=== PATIENT | male | born 1930 | race Caucasian/White ===

== ENCOUNTER 2016-08-23 12:56 | Observation (INO) | payer MEDICARE ==
[2016-08-23] MEDS ORDERED: Aspirin Low Dose CHEW TAB* 81 MG PO ONE (13:38)
--- NOTE | 2016-08-23 13:57 | RAD ---
Indication: Chest pain, CHF and pneumonia. Single frontal view of the chest performed at 1345 hours was reviewed. Comparison is made with previous exam dated November 13, 2014. Cardiomegaly is noted. Chronic pleural changes are noted with chronic interstitial disease. Cannot exclude bibasilar infiltrates. IMPRESSION: THERE MAY BE SOME CHRONIC INTERSTITIAL DISEASE ALTHOUGH BIBASILAR INFILTRATES ARE NOT EXCLUDED. CARDIOMEGALY IS NOTED.
[2016-08-23 14:51] LABS: Hematocrit 49 % (42-52); Hemoglobin 16.2 g/dl (14.0-18.0); Mean Corpuscular HGB Conc 33 g/dl (31-36); Mean Corpuscular Hemoglobin 29 pg (27-31); Mean Corpuscular Volume 88 fL (80-94); Mean Platelet Volume 8 um3 (7.4-10.4); Red Blood Count 5.58 10^6/ul (4.0-5.4); Red Cell Distribution Width 14 % (10.5-15); White Blood Count 14.7 10^3/ul (3.5-10.8)
[2016-08-23 15:08] LABS: Troponin I 0.01 ng/mL (<0.04)
[2016-08-23 15:16] LABS: Albumin 4.2 g/dL (3.2-5.2); BUN/Creatinine Ratio 25.6 (8-20); Calcium 9.9 mg/dL (8.6-10.3); EGFR African American 103.1 (>60); EGFR Non-African American 80.2 (>60); Globulin 3.4 g/dL (2-4); Total Bilirubin 0.7 mg/dL (0.2-1.0); Total Protein 7.6 g/dL (6.4-8.9)
[2016-08-23] MEDS ORDERED: Acetaminophen TAB* 325 MG PO PRN (15:59)
[2016-08-23] MEDS ORDERED: NS 0.9% 1000 ML* 1,000 ML IV SCH (16:00)
[2016-08-23] MEDS ORDERED: Iohexol 350* (CONTRAST) 500 ML MDV IV ONE (16:39)
[2016-08-23 16:40] LABS: C Reactive Protein 6.66 mg/L (< 5.00)
--- NOTE | 2016-08-23 17:13 | ED ---
Peter Travis Adam, scribed for Kevin Wilson MD on 08/23/16 at 1330 . Shortness of Breath - HPI Summary HPI Summary: Pt is an 85 year old male presenting with SOB, back pain, and EKG changes. He states that starting yesterday he developed pain across his back at the level of his shoulder blades. He states that the muscles are sore and it feels like he "just got done with football practice." The pain is worse with movement. The pain is mostly resolved right now as the pt lies in bed. He also c/o intermittent SOB with minimal exertion and standing up which has been going on for longer than the back pain. He went to his PCP at [place] this morning and was sent here because of changes in his EKG. PMHx of HTN and HLD. Negative hx of VA and DM. Pt smokes 1 cigar per day. He gave up alcohol 5 years ago. - History of Current Complaint Chief Complaint: EDShortnessOfBreath Time Seen by Provider: 08/23/16 13:18 Hx Obtained From: Patient Onset/Duration: Gradual Onset, Lasting Days, Still Present Timing: Constant Current Severity: Moderate Dyspnea At: Exertion - Minimal Aggrevating Factors: Movement Alleviating Factors: Spontaneous Resolution - After resting still Associated Signs & Symptoms: Negative - Allergy/Home Medications Allergies/Adverse Reactions: Allergies Allergy/AdvReac Type Severity Reaction Status Date / Time Hydrochlorothiazide Allergy Unknown Verified 08/23/16 13:01 Reaction Details Penicillins Allergy See Comment Verified 08/23/16 13:01 Home Medications: Home Medications Albuterol/Ipratropium RESP(NF) [Combivent Respimat(NF)] 1 puff INH BID PRN 08/23 [History Confirmed 08/23/16] Aspirin EC Low Dose* [Ecotrin EC Low Dose 81 MG*] 81 mg PO DAILY 08/23/16 [ History Confirmed 08/23/16] Naproxen Sodium [Naproxen Sodium 220 mg] 220 mg PO BID PRN 08/23/16 [History Confirmed 08/23/16] Sertraline* [Zoloft*] 50 mg PO DAILY 08/23/16 [History Confirmed 08/23/16] PMH/Surg Hx/FS Hx/Imm Hx Endocrine/Hematology History: Denies: Hx Diabetes Cardiovascular History: Reports: Hx Hypercholesterolemia, Hx Hypertension - CONTROLLED W/MEDS Denies: Hx Myocardial Infarction, Hx Pacemaker/ICD Respiratory History: Reports: Other Respiratory Problems/Disorders - PULMONARY FIBROSIS GI History: Reports: Hx Gastroesophageal Reflux Disease, Hx Hiatal Hernia Musculoskeletal History: Reports: Hx Arthritis, Hx Back Problems - lower back, Hx Bursitis - shoulders, Hx Gout Sensory History: Reports: Hx Cataracts - surgery to both eyes, Hx Contacts or Glasses - reading only, Hx Vision Problem Denies: Hx Hearing Aid Opthamlomology History: Reports: Hx Cataracts - surgery to both eyes, Hx Contacts or Glasses - reading only, Hx Vision Problem Neurological History: Reports: Hx Headaches, Hx Transient Ischemic Attacks (TIA ) - admission Dx, Other Neuro Impairments/Disorders - spinal compression fracture Psychiatric History: Denies: Hx Panic Disorder - Cancer History Cancer Type, Location and Year: pt states he had a lump removed from back of head at [place]. Hx Chemotherapy: No Hx Radiation Therapy: No - Surgical History Surgery Procedure, Year, and Place: hiatal hernia -before 1999, cataracts to both eyes, Hx Anesthesia Reactions: No Infectious Disease History: No Infectious Disease History: Denies: Traveled Outside the [place] in Last 30 Days - Family History Known Family History: Positive: Other - CVA (mother at age 84 or 85) - Social History Occupation: Retired Lives: With Family - Alcohol Use: Occasionally Hx Substance Use: No Substance Use Type: Reports: None Hx Tobacco Use: Yes Smoking Status (MU): Current Every Day Smoker Type: Cigars Amount Used/How Often: 1 cigar per day Length of Time of Smoking/Using Tobacco: about 70 years Have You Smoked in the Last Year: Yes Review of Systems Negative: Fever Positive: Shortness Of Breath Positive: Myalgia - Upper back All Other Systems Reviewed And Are Negative: Yes Physical Exam - Summary Physical Exam Summary: The patient is well-nourished in no acute distress and in no acute pain. The skin is warm and dry and skin color reflects adequate perfusion. HEENT: The head is normocephalic and atraumatic. The pupils are equal and reactive. The conjunctivae are clear and without drainage. Nares are patent and without drainage. Mouth reveals moist mucous membranes and the throat is without erythema and exudate. The external ears are intact. Neck is supple with full range of motion and non-tender. There are no carotid bruits. There is no neck vein distension. Respiratory: Chest is non-tender. Lungs are clear to auscultation and breath sounds are symmetrical and equal. No wheezes, rhonchi, rales. Cardiovascular: Heart is regular rate and rhythm. There is no murmur or rub auscultated. There is no peripheral edema and pulses are symmetrical and equal. Abdomen: The abdomen is soft and non-tender. There are normal bowel sounds heard in all four quadrants and there is no organomegaly palpated. Musculoskeletal: There is no reproducible back pain noted. No reproducible chest pain. No reproducible pain over shoulder blades. Extremities are non- tender with full range of motion. Motor strength is equal in extremities. There is good capillary refill. There is no peripheral edema or calf tenderness elicited. Neurological: Patient is alert and oriented to person, place and time. The patient has symmetrical motor strength in all four extremities. Cranial nerves are grossly intact. Deep tendon reflexes are symmetrical and equal in all four extremities. Psychiatric: The patient has an appropriate affect and does not exhibit any anxiety or depression. Triage Information Reviewed: Yes Vital Signs On Initial Exam: Initial Vitals Temp Pulse Resp BP Pulse Ox 97.1 F 42 16 144/67 96 08/23/16 13:01 08/23/16 13:01 08/23/16 13:01 08/23/16 13:01 08/23/16 13:01 Vital Signs Reviewed: Yes Diagnostics - Vital Signs Vital Signs Temp Pulse Resp BP Pulse Ox 08/23/16 13:01 97.1 F 42 16 144/67 96 - Laboratory Lab Results: Lab Results 08/23/16 08/23/16 08/23/16 Range/Units 14:40 14:40 14:40 WBC 14.7 H (3.5-10.8) 10^3/ul RBC 5.58 H (4.0-5.4) 10^6/ul Hgb 16.2 (14.0-18.0) g/dl Hct 49 (42-52) % MCV 88 (80-94) fL MCH 29 (27-31) pg MCHC 33 (31-36) g/dl RDW 14 (10.5-15) % Plt Count 311 (150-450) 10^3/ul MPV 8 (7.4-10.4) um3 Neut % (Auto) 69.6 (38-83) % Lymph % (Auto) 17.0 L (25-47) % [place] % (Auto) 8.8 (1-9) % Eos % (Auto) 3.4 (0-6) % Baso % (Auto) 1.2 (0-2) % Absolute Neuts (auto) 10.3 H (1.5-7.7) 10^3/ul Absolute Lymphs (auto) 2.5 (1.0-4.8) 10^3/ul Absolute Monos (auto) 1.3 H (0-0.8) 10^3/ul Absolute Eos (auto) 0.5 (0-0.6) 10^3/ul Absolute Basos (auto) 0.2 (0-0.2) 10^3/ul Absolute Nucleated RBC 0.01 10^3/ul Nucleated RBC % 0 Sodium 136 (133-145) mmol/L Potassium 4.0 (3.5-5.0) mmol/L Chloride 101 (101-111) mmol/L Carbon Dioxide 28 (22-32) mmol/L Anion Gap 7 (2-11) mmol/L BUN 23 (6-24) mg/dL Creatinine 0.90 (0.67-1.17) mg/dL Est GFR ( Amer) 103.1 (>60) Est GFR (Non-Af Amer) 80.2 (>60) BUN/Creatinine Ratio 25.6 H (8-20) Glucose 93 (70-100) mg/dL Lactic Acid 1.5 (0.5-2.0) mmol/L Calcium 9.9 (8.6-10.3) mg/dL Total Bilirubin 0.70 (0.2-1.0) mg/dL AST 16 (13-39) U/L ALT 10 (7-52) U/L Alkaline Phosphatase 110 H (34-104) U/L Troponin I 0.01 (<0.04) ng/mL C-Reactive Protein 6.66 H (< 5.00) mg/L B-Natriuretic Peptide ( - 100) pg/mL Total Protein 7.6 (6.4-8.9) g/dL Albumin 4.2 (3.2-5.2) g/dL Globulin 3.4 (2-4) g/dL Albumin/Globulin Ratio 1.2 (1-3) // Range/Units 14:40 WBC (3.5-10.8) 10^3/ul RBC (4.0-5.4) 10^6/ul Hgb (14.0-18.0) g/dl Hct (42-52) % MCV (80-94) fL MCH (27-31) pg MCHC (31-36) g/dl RDW (10.5-15) % Plt Count (150-450) 10^3/ul MPV (7.4-10.4) um3 Neut % (Auto) (38-83) % Lymph % (Auto) (25-47) % [place] % (Auto) (1-9) % Eos % (Auto) (0-6) % Baso % (Auto) (0-2) % Absolute Neuts (auto) (1.5-7.7) 10^3/ul Absolute Lymphs (auto) (1.0-4.8) 10^3/ul Absolute Monos (auto) (0-0.8) 10^3/ul Absolute Eos (auto) (0-0.6) 10^3/ul Absolute Basos (auto) (0-0.2) 10^3/ul Absolute Nucleated RBC 10^3/ul Nucleated RBC % Sodium (133-145) mmol/L Potassium (3.5-5.0) mmol/L Chloride (101-111) mmol/L Carbon Dioxide (22-32) mmol/L Anion Gap (2-11) mmol/L BUN (6-24) mg/dL Creatinine (0.67-1.17) mg/dL Est GFR ( Amer) (>60) Est GFR (Non-Af Amer) (>60) BUN/Creatinine Ratio (8-20) Glucose (70-100) mg/dL Lactic Acid (0.5-2.0) mmol/L Calcium (8.6-10.3) mg/dL Total Bilirubin (0.2-1.0) mg/dL AST (13-39) U/L ALT (7-52) U/L Alkaline Phosphatase (34-104) U/L Troponin I (<0.04) ng/mL C-Reactive Protein (< 5.00) mg/L B-Natriuretic Peptide 110 H ( - 100) pg/mL Total Protein (6.4-8.9) g/dL Albumin (3.2-5.2) g/dL Globulin (2-4) g/dL Albumin/Globulin Ratio (1-3) Result Diagrams: 08/23/16 14:40 08/23/16 14:40 Lab Statement: Any lab studies that have been ordered have been reviewed, and results considered in the medical decision making process. - Radiology CXR Radiology Interpretation Completed By: Radiologist - IMPRESSION: THERE MAY BE SOME CHRONIC INTERSTITIAL DISEASE ALTHOUGH BIBASILAR INFILTRATES ARE NOT EXCLUDED. CARDIOMEGALY IS NOTED. - EKG 13:11 Cardiac Rate: Bradycardia - 58 BPM EKG Interpretation: T wave inversions in V1 and V2. Poor R wave progression. EKG Comparison: Other - New TWI in V2. TWI more pronounced in V1. (Compared with EKG from 11/12/14) - Additional Comments Diagnostic Additional Comments: Troponin I - 0.01 Course/Dx - Diagnoses Differential Diagnosis/HQI/PQRI: Positive: VA, Pneumonia Provider Diagnoses: Back tightness, EKG changes - Physician Notifications Discussed Care of Patient With: Dr. Mock (hospitalist) at 15:45. He accepts admission of patient. Discharge - Discharge Plan Condition: Stable Disposition: ADMITTED TO [facility] The documentation as recorded by the Peter kim Adam accurately reflects the service I personally performed and the decisions made by , Kevin iWlson MD.
--- NOTE | 2016-08-23 17:29 | RAD ---
INDICATION: Pain in the upper back, shortness of breath, weakness. COMPARISON: August 23, 2016 TECHNIQUE: Multidetector CT images were obtained from the lung apices to the upper abdomen with 69 mL Omnipaque 350 IV contrast. Pulmonary angiogram protocol. Multiplanar reformation including with maximum intensity projection. REPORT: Bilateral interstitial fibrosis most marked at the lower lung zones with extensive honeycombing and bronchiectasis. Subpleural bulla at the posterior lateral RIGHT midlung zone. No focal pulmonary alveolar consolidation or suspicious focal pulmonary lesion evident. Negative for pleural effusions or pneumothorax. Cardiomegaly and prominent central pulmonary arteries with peripheral attenuation consistent with pulmonary arterial hypertension. No filling defects are identified from the main to the subsegmental pulmonary arteries to indicate presence of a pulmonary embolism. Normal diameter thoracic aorta with mild atherosclerotic plaque. While early phase of contrast enhancement limits assessment there is no gross evidence for dissection of the thoracic aorta. Negative for pericardial effusion. Mildly enlarged 1.2 cm short axis RIGHT paratracheal lymph node. Mildly enlarged 1.1 cm short axis lymph node insinuating between the LEFT main pulmonary artery and the descending thoracic aorta. Small sliding type hiatal hernia. Mild anterior column compression deformity involving the superior endplate of the T6 vertebral body appears chronic. No acute thoracic fractures evident. No suspicious focal osseous lesions. Advanced arthropathy of the shoulders. IMPRESSION: 1. No evidence for pulmonary embolism. 2. Stigmata of severe interstitial fibrosis and pulmonary arterial hypertension. Due to magnitude of interstitial fibrosis a superimposed bronchopneumonia would be difficult to exclude. Correlate with clinical assessment.
[2016-08-23] MEDS ORDERED: Senna TAB PO SCH (21:00)
[2016-08-23] MEDS ORDERED: Metoprolol Tartrate TAB* 50 mg PO SCH (21:00)
[2016-08-23] MEDS: Heparin VIAL(*) 5000 UNITS/ML VIAL (FIVE THOUSAND) SUBCUT SCH (21:57)
--- NOTE | 2016-08-23 22:37 | HP ---
HISTORY AND PHYSICAL: DATE OF ADMISSION: 08/23/16 PRIMARY CARE PROVIDER: Erin Garcia, Dr. Oden. CHIEF COMPLAINT: Shortness of breath and pleuritic right back pain. HISTORY OF PRESENT ILLNESS: Mr. Cervantes is an 85-year-old male with history of hypertension, peptic ulcer disease, who presented to the hospital complaining of dyspnea on exertion and right-sided pleuritic back pain. The patient stated that all winter, he had been short of breath with exercise. He stated that he has bad knees and he does not really walk that well, but whenever he tries to walk outside, he feels that he gets short of breath. He stated that when he waits and stands in one spot for 5 minutes, the dyspnea goes away. He denies chest pain. Today, he was seen by his primary care doctor because he was experiencing back spasms and back pain. He describes the back and his lower thoracic area on the right side. The pain is pleuritic. His initial workup in the ED showed EKG which is slightly different from his prior. His troponin is negative. The patient is going to be placed on observation with the diagnosis of dyspnea. He is going to have a CTA of the chest obtained, and if that is negative, he is going to undergo a stress test in the morning. PAST MEDICAL HISTORY: 1. Hiatal hernia. 2. Hypertension. 3. Peptic ulcer disease. 4. History of hernia repair. 5. 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 MEDICATIONS: Include: 1. Naproxen 220 mg b.i.d. p.r.n. 2. Zoloft 50 mg daily. 3. Omeprazole 40 mg daily. 4. Metoprolol tartrate 50 mg b.i.d. 5. Combivent one puff b.i.d. p.r.n. 6. Aspirin 81 mg daily. ALLERGIES: HYDROCHLOROTHIAZIDE and PENICILLIN. FAMILY HISTORY: Positive for a mother with stroke. The patient denies any history of heart disease in mother or father. SOCIAL HISTORY: The patient smokes an occasional cigar. He denies any alcohol or drug use. He is with 3 children. His Nichole Cervantes is his healthcare proxy. REVIEW OF SYSTEMS: Please see history of present illness. Positive for dyspnea on exertion. Negative for chest pain until today when the patient developed thoracic back pain on the right side, which is pleuritic. Negative for fevers. Negative for cough. The patient stated that he has bad exercise tolerance due to bilateral knee osteoarthritis. The patient also has chronic bilateral legs edema that does not get better in the morning. He states that his edema has actually improved from prior. All the remaining 14 systems were reviewed with the patient and were otherwise negative. PHYSICAL EXAMINATION GENERAL: The patient is a very pleasant 85-year-old male who is in no acute distress. The patient is alert and oriented x3 but forgetful. VITAL SIGNS: Blood pressure of 119/81, heart rate of 63 and regular, respiratory rate 20, oxygen saturation 95% on room air, temperature 97.1. HEENT: Head atraumatic, normocephalic. Eyes: Pupils equal, reactive to light and accommodation. Oropharynx clear. Mucosa moist. NECK: Supple. No JVD. No bruits bilaterally. RESPIRATORY: Dry crackles at right lower base, otherwise clear. CARDIOVASCULAR: Regular rate and rhythm. No murmur. ABDOMEN: Slightly distended, soft, nontender. Bowel sounds present in all 4 quadrants. EXTREMITIES: There is trace bilateral pedal edema. Pulses are +2 bilaterally. There is no clubbing or cyanosis. NEUROLOGIC: Speech clear. Cranial nerves II through XII grossly intact. Motor strength is 5/5 bilaterally. SKIN: On evaluation of the skin, no ecchymotic areas or rashes noted. PSYCHIATRIC: Pleasant and cooperative with evaluation. The patient is a rather poor historian. No evidence of anxiety or depression. LABORATORY DATA AND DIAGNOSTIC STUDIES: Showed white blood cell count of 14.7 , hemoglobin of 16.2, hematocrit of 49, and platelets of 311. Sodium 136, potassium 4.0, chloride 101, CO2 28, BUN 22, creatinine 0.9. Liver functions were unremarkable with troponin of 0.01. The patient's alkaline phosphatase is mildly elevated at 110. Brain natriuretic peptide was 110. The patient's portable chest x-ray: Impression: "There may be some chronic interstitial change, although bibasilar infiltrates are not excluded. Cardiomegaly is noted." The patient also has chronic pleural changes on the right that is the same as on the chest x-ray noted from 2015. The patient's EKG shows sinus rhythm with a heart rate of 58 beats per minute with negative T waves in lead III, of T waves in lead aVF, and deep negative T waves in leads V1 and V2 as well as V3. Comparing to prior EKG from 2015, the deep negative T waves from V1, V2, and V3 are new. ASSESSMENT AND PLAN: An 85-year-old male with history of hypertension and no history of heart disease, presents with dyspnea on exertion for 6 months and new right-sided pleuritic back pain. At this point, the patient's dyspnea on exertion and EKG changes are all concerning. He denies chest pain. His initial troponin was negative. The patient is going to be placed on continuation of her baby aspirin and beta nestor. Cardiac stress test is going to be obtained in the morning. The patient opted for pharmacologic stress test due to history of knee osteoarthritis. In regards to right-sided pleural chest pain, it is probably musculoskeletal related. Nevertheless, the patient has history of pleural problems in the right and with a history of pleuritic chest pain, I will obtain a CT angiogram of the chest to evaluate it further. In regards to the patient's hypertension, it is controlled and metoprolol is going to be continued. For gastroesophageal reflux disease, omeprazole is going to be continued. For DVT prophylaxis, the patient is going to be placed on heparin subcutaneously. Code status was discussed with the patient and the patient wishes to be do not resuscitate. That is a continuation of the wishes from 2015 and his MOLST is going to be updated. TIME SPENT: Approximately 68 minutes was spent on admission of this patient. More than half that time was spent [id number] with the patient during interview and physical exam. CC: Dr. Oden; Dr. Mistry * [id number]/[facility] #: [id number] [facility] NETWORKRuss
[2016-08-24] MEDS: Heparin VIAL(*) 5000 UNITS/ML VIAL (FIVE THOUSAND) SUBCUT SCH (05:00)
[2016-08-24 07:49] VITALS: BP 123/46
[2016-08-24] MEDS ORDERED: Aminophylline IV* 25 MG/ML 10 ML VIAL ONE (08:23)
[2016-08-24] MEDS ORDERED: Regadenoson* 0.4 MG/5 ML SYRINGE ONE (08:23)
[2016-08-24] MEDS ORDERED: Aspirin EC Low Dose* 81 MG TAB.EC PO SCH (09:00)
[2016-08-24] MEDS ORDERED: Omeprazole CAP* 20 MG PO SCH (09:00)
[2016-08-24] MEDS ORDERED: Sertraline* 50 MG TAB PO SCH (09:00)
--- NOTE | 2016-08-24 10:32 | RAD ---
Edited for charges. INDICATION: Chest pain. Extensive interstitial fibrosis. Lymphadenopathy. Hiatal hernia COMPARISON: CTA chest August 23, 2016 TECHNIQUE: A single day SPECT protocol was utilized. Rest images were acquired following the intravenous injection of 10.29 millicuries of technetium 99m tetrofosmin. Pharmacologic stress images were acquired following the intravenous administration of 25.7 millicuries of technetium 99m tetrofosmin. This examination is mildly limited due to the patient's clinical condition. The patient's arms could not be raised above his head. FINDINGS: There are no defects of the stress-induced or fixed nature. The cardiac chamber size is normal. There are no wall motion abnormalities. The ejection fraction is calculated at 94 percent during stress. IMPRESSION: NEGATIVE EXAMINATION. ASSESSMENT: LOW-RISK Based on imaging criteria from ACC/AHA 2002 Guideline Update for the Management of Patients With Chronic Stable Angina Table 23. Noninvasive Risk Stratification. MTDD
--- NOTE | 2016-08-24 10:56 | DCNOTE ---
Patient seen this morning. No new complaints. No chest pain. Back pain resolved. On exam, coarse rales in B/L bases, RRR, s1 and s2 present, no m/g/r, abd soft, NTND, BS+, no LE edema Stress test negative, no evidence of PE. Suspect this may be progression of his pulmonary fibrosis. Will check ambulatory O2 sat, may benefit from home O2 if hypoxic. Plan to discharge today for PCP follow-up.
--- NOTE | 2016-08-25 02:52 | DS ---
DISCHARGE SUMMARY: DATE OF ADMISSION: 08/23/16 DATE OF DISCHARGE: 08/24/16 PRIMARY CARE PHYSICIAN: Dr. Woodward. PRINCIPAL DISCHARGE DIAGNOSES: 1. Dyspnea on exertion. 2. Hypoxia. 3. Pulmonary fibrosis. SECONDARY DIAGNOSES: 1. Hiatal hernia. 2. Hypertension. 3. Peptic ulcer disease. DISCHARGE MEDICATION REGIMEN: 1. Aspirin 81 mg by mouth daily. 2. Combivent 1 puff inhaled 3 times daily as needed for shortness of breath or wheezing. 3. Metoprolol 50 mg by mouth 2 times daily. 4. Omeprazole 20 mg by mouth daily. 5. Sertraline 50 mg by mouth daily. 6. Naproxen 220 mg by mouth 2 times daily as needed for pain. STUDIES DONE DURING THIS HOSPITALIZATION: Chest x-ray, impression: There may be some chronic interstitial disease although, but basilar infiltrates are not excluded. Cardiomegaly is noted. CTA of the chest, impression: No evidence of pulmonary embolism. Stigmata of severe interstitial fibrosis and pulmonary arterial hypertension due to interstitial fibrosis. Superimposed bronchopneumonia would be difficult to exclude. Nuclear cardiac stress test, impression: Negative examination. Assessment, low risk. HISTORY OF PRESENT ILLNESS AND HOSPITAL SUMMARY: Please see the full history and physical by Dr. Danielle Velázquez for full details. Briefly, Mr. Cervantes is an 85-year- old male with the past medical history as above, who presented to the hospital with dyspnea on exertion and some back pain. The patient states that these symptoms, his dyspnea on exertion has been going on for months now, which he attributes to not being very active in the winter. However, his low back pain just started over the past few days. The patient states that he went to see his PCP, who referred him to a director of business operations. At the cardiology appointment there was some concern about the patient's symptoms, so he was sent to the emergency room for further workup. In the hospital, the patient reported no evidence of back pain while he was here. He underwent a CTA as above that showed evidence of pulmonary fibrosis which was a known diagnosis for the patient. There was no evidence of pulmonary embolism. He also underwent a nuclear stress test that was negative. I suspected that the patient's symptoms may just be due to progression of his pulmonary fibrosis. We performed an ambulatory O2 sat and the patient desaturated to the mid 70s while ambulating with room air. He will be discharged home with oxygen. He will need to follow up with his PCP as an outpatient. TIME SPENT: Total time spent on this discharge is 40 minutes. This is just a summary of hospitalization. Please see the full medical record for further details. CC: Dr. Woodward* [id number]/[facility] #: [id number] MTDD
== END 2016-08-24 11:40 | disposition home or self-care (01) ==
LOC: ED 12:56 → MEDTELE 15:59
PROVIDERS: ADMIT Internal Medicine; ATTEND Hospitalist
DX: R06.00 Dyspnea, unspecified (principal); R09.02 Hypoxemia; M54.9 Dorsalgia, unspecified; R06.02 Shortness of breath; J84.10 Pulmonary fibrosis, unspecified; K44.9 Diaphragmatic hernia without obstruction or gangrene; I10 Essential (primary) hypertension; K27.9 Peptic ulcer, site unspecified, unspecified as acute or chronic, without hemorrhage or perforation; I51.7 Cardiomegaly; I49.1 Atrial premature depolarization; Z79.82 Long term (current) use of aspirin; Z79.899 Other long term (current) drug therapy; Z88.0 Allergy status to penicillin; Z88.8 Allergy status to other drugs, medicaments and biological substances; F17.200 Nicotine dependence, unspecified, uncomplicated
CPT/HCPCS: 36415; 71010; 71275; 78452; 80053; 83605; 83880; 84484; 85025; 86140; 87502; 93005; 93017; 94760; 96360; 96361; 96372; 99283; 99406; A9270-GY; A9502; G0378; J0280; J1644; J2785; Q9967

== ENCOUNTER 2016-11-14 11:12 | Inpatient (IN) | payer MEDICARE ==
[2016-11-14 11:45] LABS: Hematocrit 48 % (42-52); Hemoglobin 15.9 g/dl (14.0-18.0); Mean Corpuscular HGB Conc 33 g/dl (31-36); Mean Corpuscular Hemoglobin 29 pg (27-31); Mean Corpuscular Volume 88 fL (80-94); Mean Platelet Volume 8 um3 (7.4-10.4); Red Blood Count 5.42 10^6/ul (4.0-5.4); Red Cell Distribution Width 14 % (10.5-15)
--- NOTE | 2016-11-14 11:57 | RAD ---
INDICATION: Shortness of breath. COMPARISON: Comparison is made with prior chest x-ray studies from November 13, 2014 and August 23, 2016. TECHNIQUE: A portable view of the chest was obtained. FINDINGS: The heart is moderately enlarged and unchanged from the prior exam. There is diffuse prominence of the interstitial markings which have increased consistent with chronic interstitial lung disease with possible superimposed congestive heart failure. There are more focal infiltrates at both lung bases. There is suggestion of small bilateral pleural effusions. There is severe bilateral osteoarthritic change in the shoulders. IMPRESSION: CHRONIC INTERSTITIAL LUNG DISEASE WITH POSSIBLE SUPERIMPOSED CONGESTIVE HEART FAILURE AND/OR PNEUMONIA.
[2016-11-14 12:01] LABS: Albumin 3.7 g/dL (3.2-5.2); BUN/Creatinine Ratio 34.6 (8-20); Calcium 9.1 mg/dL (8.6-10.3); EGFR African American 116.2 (>60); EGFR Non-African American 90.4 (>60); Globulin 3.1 g/dL (2-4); Potassium 3.7 mmol/L (3.5-5.0); Total Bilirubin 0.8 mg/dL (0.2-1.0); Total Protein 6.8 g/dL (6.4-8.9)
[2016-11-14] MEDS ORDERED: Furosemide IV* 10 MG/ML VIAL (40 MG) IV ONE (12:10)
[2016-11-14] MEDS ORDERED: Levofloxacin 750 MG IVPREMIX(* 750 MG/150 ML BAG IVPB ONE (12:13)
[2016-11-14 12:36] LABS: Troponin I 0.46 ng/mL (<0.04)
[2016-11-14] MEDS ORDERED: Albuterol 2.5 MG/3 ML NEB.SOL* (0.083%) INH PRN (13:32)
[2016-11-14] MEDS ORDERED: Ipratropium 0.5MG/2.5ML NEB* 0.5 MG/2.5 ML NEB.SOLN INH PRN (13:33)
[2016-11-14] MEDS ORDERED: Morphine INJ* 2 MG/ML 1 ML SYRINGE IV ONE (13:53)
[2016-11-14] MEDS ORDERED: Morphine INJ* 2 MG/ML 1 ML SYRINGE ONE (13:57)
[2016-11-14] MEDS ORDERED: Heparin VIAL(*) 5000 UNITS/ML VIAL (FIVE THOUSAND) SUBCUT SCH (14:00)
[2016-11-14 14:42] LABS: Urine Bilirubin Negative (Negative); Urine Glucose Negative (Negative); Urine Nitrite Negative (Negative)
[2016-11-14] MEDS ORDERED: methylPREDNISolone 125 MG* 2 ML VIAL IV ONE (14:46)
--- NOTE | 2016-11-14 14:52 | HP ---
H&P (Free Text) History and Physical: History and Physical - Critical Care Requesting Physician: Dr Nakul Reeder (ER MD) Limitations in history/physical: respiratory distress, obtained from chart and family. Date of admission: 11/14/2016 HPI: 86y M pmhx of COPD, Interstitial fibrosis, chronic hypoxia on 4L O2, HTN, GERD; recently found to have interstitial fibrosis >6 months back. Since then he has been more short of breath, progressive. No cough. He has been developing increased lower ext swelling. For the past few days shortness of breath has worsened, more at rest now. Cough+ but no sputum. Patient denies cp/n/v/headache /palpitations. He is on home o2 4L. Was recently on steroids but finished course. No sick contacts or recent travel. No URI symptoms as per family. EMS brought him in for increased work of breathing, hypoxic. In ER, he was tachypneic, sats 90s. Started on NIV, sats improved. Remains tachypneic. Given Lasix iv 40mg x1 dose and Levaquin for suspected congestion vs pneumonia. Initial discussion with , she stated he is DNR/DNI. Discussion now with patient at family, he is unsure. I discussed resp status and intubation, the family with talk to him and among themselves ROS: limited due to resp distress PMHx: COPD, Interstitial fibrosis, Home O2 4L, Hypertension, Gastroesophageal reflux disease. PSHx: hiatal hernia repair before 1999, cataract surgery Family History: CVA in mother in her 80s Social History: retired, lives with family. No alcohol use. No substance abuse. 70 years of smoking, cigars+ daily. Allergies: Allergies Allergy/AdvReac Type Severity Reaction Status Date / Time Hydrochlorothiazide Allergy Unknown Verified 08/23/16 13:01 Reaction Details Penicillins Allergy See Comment Verified 08/23/16 13:01 Home Medications: Metoprolol Tartrate TAB* [Lopressor TAB*] 50 mg PO BID 11/13/14 [History Confirmed 08/23/16] Omeprazole CAP* [Prilosec CAP* 20 MG] 20 mg PO DAILY 11/13/14 [History Confirmed 08/23/16] Albuterol/Ipratropium RESP(NF) [Combivent Respimat (NF)] 1 puff INH BID PRN 08/06 [History Confirmed 08/23/16] Aspirin EC Low Dose* [Ecotrin EC Low Dose 81 MG*] 81 mg PO DAILY 08/23/16 [ History Confirmed 08/23/16] Naproxen Sodium [Naproxen Sodium 220 mg] 220 mg PO BID PRN 08/23/16 [History Confirmed 08/23/16] Sertraline* [Zoloft*] 50 mg PO DAILY 08/23/16 [History Confirmed 08/23/16] Tele: NSR Vitals: Vital Signs Temp 97.7 F 11/14/16 14:22 Pulse 72 11/14/16 14:22 Resp 25 11/14/16 14:24 BP 114/62 11/14/16 14:22 Pulse Ox 99 11/14/16 14:22 Intake & Output 11/13/16 11/14/16 11/14/16 18:59 06:59 18:59 Intake Total 150 Output Total 300 Balance -150 Weight 165 lb Intake: IV Fluids 150 Output: Quinones 300 O2/Vent: NIV 12/7, 60%, rr 40s, sat 100% Infusions: heplock Current Medications: Albuterol (Ventolin 2.5 Mg/3 Ml Neb.Becky*) 2.5 mg INH Q2H PRN PRN Reason: RESPIRATORY DISTRESS Heparin Sodium (Porcine) (Heparin Vial(*)) 5,000 units SUBCUT Q8HR ROSA Levofloxacin/Dextrose (Levaquin 750 Mg Ivpremix(*)) 750 mg in 150 mls @ 100 mls /hr IVPB Q24H ROSA Ipratropium [employer] (Atrovent 0.5 Mg Neb.Becky*) 0.5 mg INH Q4H PRN PRN Reason: SOB/WHEEZING Methylprednisolone Sodium Succinate (Solu-Medrol 125mg *) 125 mg IV ONCE ONE Stop: 11/14/16 14:47 Methylprednisolone Sodium Succinate (Solu-Medrol 40 Mg) 60 mg IV Q8H ROSA Pantoprazole Sodium (Protonix Iv*) 40 mg IV Q12H ROSA Physical Exam: General: awake, alert, respiratory distress+, not diaphoretic Head: normocephalic, atraumatic HEENT: no pallor, no icterus, moist mucous membranes Neck: soft, supple, no jvd, no stridor CVS: tachycardic, normal rhythm, no murmur Resp: bilateral air entry, ++rhales bilaterally more at bases, but also in upper lobes, mild scattered wheeze+, no rhonchi, +acc muscle use Abdomen: soft, nontender, nondistended, bowel sounds present Ext: pulses+, warm, 3+ edema b/l LE Skin: intact, no breakdown, no dryness Neuro: awake, alert, orientedx3, moving all extremities, no gross focal deficit Labs: Laboratory Results - last 24 hr 11/14/16 11/14/16 11/14/16 11:32 11:32 11:32 WBC 24.0 H RBC 5.42 H Hgb 15.9 Hct 48 MCV 88 MCH 29 MCHC 33 RDW 14 Plt Count 303 MPV 8 Neut % (Auto) 79.0 Lymph % (Auto) 11.4 L [place] % (Auto) 4.7 Eos % (Auto) 4.2 Baso % (Auto) 0.7 Absolute Neuts (auto) 19.0 H Absolute Lymphs (auto) 2.7 Absolute Monos (auto) 1.1 H Absolute Eos (auto) 1.0 H Absolute Basos (auto) 0.2 Absolute Nucleated RBC 0.01 Nucleated RBC % 0 INR (Anticoag Therapy) Sodium 131 L Potassium 3.7 Chloride 98 L Carbon Dioxide 27 Anion Gap 6 BUN 28 H Creatinine 0.81 Est GFR ( Amer) 116.2 Est GFR (Non-Af Amer) 90.4 BUN/Creatinine Ratio 34.6 H Glucose 155 H Lactic Acid 1.8 Calcium 9.1 Total Bilirubin 0.80 AST 35 ALT 28 Alkaline Phosphatase 81 Troponin I 0.46 H* B-Natriuretic Peptide Total Protein 6.8 Albumin 3.7 Globulin 3.1 Albumin/Globulin Ratio 1.2 Urine Color Urine Appearance Urine pH Ur Specific [place] Urine Protein Urine Ketones Urine Blood Urine Nitrate Urine Bilirubin Urine Urobilinogen Ur Leukocyte Esterase Urine Glucose 11/14/16 11/14/16 11/14/16 11:32 11:32 14:25 WBC RBC Hgb Hct MCV MCH MCHC RDW Plt Count MPV Neut % (Auto) Lymph % (Auto) [place] % (Auto) Eos % (Auto) Baso % (Auto) Absolute Neuts (auto) Absolute Lymphs (auto) Absolute Monos (auto) Absolute Eos (auto) Absolute Basos (auto) Absolute Nucleated RBC Nucleated RBC % INR (Anticoag Therapy) 1.08 Sodium Potassium Chloride Carbon Dioxide Anion Gap BUN Creatinine Est GFR ( Amer) Est GFR (Non-Af Amer) BUN/Creatinine Ratio Glucose Lactic Acid Calcium Total Bilirubin AST ALT Alkaline Phosphatase Troponin I B-Natriuretic Peptide 944 H Total Protein Albumin Globulin Albumin/Globulin Ratio Urine Color Straw Urine Appearance Clear Urine pH 7.0 Ur Specific [place] 1.006 L Urine Protein Negative Urine Ketones Negative Urine Blood Negative Urine Nitrate Negative Urine Bilirubin Negative Urine Urobilinogen Negative Ur Leukocyte Esterase Negative Urine Glucose Negative Imaging: cxr 11/14 - bilateral interstitial infiltrates as prior, more left retrocardiac and right sided; some ?congestion increase from prior. no clear large consolidation evidence compared to prior. Prior CT/CXR imaging reviewed Assessment: 86y M pmhx of COPD, Interstitial fibrosis, chronic hypoxia on 4L O2 , HTN, GERD; recently found to have interstitial fibrosis >6 months back. COmes in with progressive shortness of breath; now more pronounced resp distress, hypoxia, increasing LE edema. -Acute on Chronic Hypoxic Respiratory Failure -Volume overload -Suspected Acute decompensated diastolic heart failure -Leukocytosis, r/o sepsis -Intersitital fibrosis, suspect infection vs progression of disease vs fluid overload -Pulmonary hypertension Plan: Neuro- awake/alert. delirium prec. avoid bdz. CVS- hemodyn stable, BP stable. hold ivf. Edema+ with rhales. trial of lasix 40mg iv given, watch urine output. hold lopressor for now. Resp- on NIV 04/28, 60%, still in distress. Pulm congestion vs pneumonia vs progression of disease. will r/o acute PE, CTA chest ordered. LE duplex ordered. IV lasix. IV levaquin 780mg IV daily. solumedrol 125mg x1 now, then 60mg iv q8h. duoneb q2h prn. abg now. CXR in AM. Need discussion with family and pt about code status and intubation, they will discuss. He has a labile resp status, increased work of breathing. morphine prn x1-2 doses for distress seem to help. there is an anxiety component as per family, he is a very anxious person. ID- WBC elevated, afebrile. blood cx and sputum cx. started on levaquin for CAP , cont 500mg iv daily tomorrow. steroids also causing wbc rise? GI- NPO while on bipap. cont PPI. Renal- hold IVF for now. lasix iv, reassess in a few hours for more lasix. Cr normal. BUN mildly elevated. Heme- hg stable. plt stable. DVT prophylaxis chemical/mechanical Endo- FS as needed Musculsk- LE duplex for r/o dvt. cont lasix. keep leg elevated. Wounds- none Nutrition- NPO on bipap DVT prophylaxis: heparin sq GI prophylaxis: PPI Central Line: none Arterial Line: none Quinones Cathetor: yes Disposition: admit to ICU for acute respiratory failure req NIV Code Status: DNR, but unclear, change to full code till status confirmed expected length of stay >2midnights Total Critical Care time is 60 minutes, excluding procedures/teaching Gui Reid MD Freelance Operator (Electronically Signed)
[2016-11-14 15:10] LABS: TSH (Thyroid Stimulating Horm) 3.77 mcIU/mL (0.34-5.60)
[2016-11-14] MEDS: Pantoprazole IV* 40 MG IV SCH (15:14)
[2016-11-14] MEDS ORDERED: Iohexol 350* (CONTRAST) 500 ML MDV IV ONE (15:58)
[2016-11-14] MEDS ORDERED: Morphine INJ* 2 MG/ML 1 ML SYRINGE IV PRN (16:02)
--- NOTE | 2016-11-14 16:37 | ED ---
Ivone Travis Alok, scribed for Nakul Reeder MD on 11/14/16 at 1129 . Shortness of Breath - HPI Summary HPI Summary: 86M presents to the ED BIBA for SOB. EMS has placed patient on BiPAP. Pt's family report pt has been SOB progressively worsening for the last few months, worse than ever before since this morning. Pt notes non-productive cough and presents with peripheral edema. Pt denies fever. PMHx includes COPD and pulmonary fibrosis. Pt was recently given a Rx for Lasix but hasn't began his medication yet. Pt family confirm pt is DNR. - History of Current Complaint Chief Complaint: EDShortnessOfBreath Hx Obtained From: Patient, Family/Armored [employer] Messenger, EMS Onset/Duration: Lasting Weeks, Still Present, Worse Since - This morning Timing: Constant Current Severity: Moderate Dyspnea At: Rest Aggrevating Factors: Nothing Associated Signs & Symptoms: Cough (Nonproductive), Edema - Allergy/Home Medications Allergies/Adverse Reactions: Allergies Allergy/AdvReac Type Severity Reaction Status Date / Time Hydrochlorothiazide Allergy Unknown Verified 08/23/16 13:01 Reaction Details Penicillins Allergy See Comment Verified 08/23/16 13:01 PMH/Surg Hx/FS Hx/Imm Hx Endocrine/Hematology History: Denies: Hx Diabetes Cardiovascular History: Reports: Hx Hypercholesterolemia, Hx Hypertension - CONTROLLED W/MEDS Denies: Hx Angina, Hx Coronary Artery Disease, Hx Myocardial Infarction, Hx Pacemaker/ICD, Hx Valvular Heart Disease Respiratory History: Reports: Other Respiratory Problems/Disorders - PULMONARY FIBROSIS Denies: Hx Asthma, Hx Chronic Obstructive Pulmonary Disease (COPD) GI History: Reports: Hx Gastroesophageal Reflux Disease, Hx Hiatal Hernia Musculoskeletal History: Reports: Hx Arthritis, Hx Back Problems - lower back, Hx Bursitis - shoulders, Hx Gout Sensory History: Reports: Hx Cataracts - surgery to both eyes, Hx Contacts or Glasses - reading only, Hx Vision Problem Denies: Hx Hearing Aid Opthamlomology History: Reports: Hx Cataracts - surgery to both eyes, Hx Contacts or Glasses - reading only, Hx Vision Problem Neurological History: Reports: Hx Headaches Comment Only: Hx Transient Ischemic Attacks (TIA) - admission Dx, Other Neuro Impairments/Disorders - spinal compression fracture Psychiatric History: Denies: Hx Panic Disorder - Cancer History Cancer Type, Location and Year: pt states he had a lump removed from back of head at [facility]. Hx Chemotherapy: No Hx Radiation Therapy: No - Surgical History Surgery Procedure, Year, and Place: hiatal hernia -before 1999, cataracts to both eyes, Hx Anesthesia Reactions: No Infectious Disease History: Denies: Traveled Outside the [place] in Last 30 Days - Family History Known Family History: Positive: Other - CVA (mother at age 84 or 85) - Social History Occupation: Retired Lives: With Family Alcohol Use: None Hx Substance Use: No Substance Use Type: Reports: None Hx Tobacco Use: Yes Smoking Status (MU): Current Every Day Smoker Type: Cigars Amount Used/How Often: 1 cigar per day Length of Time of Smoking/Using Tobacco: about 70 years Have You Smoked in the Last Year: Yes Review of Systems Negative: Fever Positive: Shortness Of Breath, Cough Positive: Edema All Other Systems Reviewed And Are Negative: Yes Physical Exam Triage Information Reviewed: Yes Vital Signs On Initial Exam: Initial Vitals Temp Pulse Resp BP Pulse Ox 97.6 F 71 32 117/71 90 11/14/16 11:16 11/14/16 11:16 11/14/16 11:16 11/14/16 11:16 11/14/16 11:16 Vital Signs Reviewed: Yes Appearance: Positive: Well-Appearing, No Pain Distress Skin: Positive: Warm, Skin Color Reflects Adequate Perfusion, Dry Head/Face: Positive: Normal Head/Face Inspection Eyes: Positive: Normal ENT: Positive: Normal ENT inspection Neck: Positive: Supple, Nontender Respiratory/Lung Sounds: Positive: Other - Rales and Crackles about half way up lung field bilaterally. Pt is Tachypnic. Cardiovascular: Positive: RRR Abdomen Description: Positive: Nontender, Soft Bowel Sounds: Positive: Present Musculoskeletal: Positive: Other - Pitting edema distally Neurological: Positive: Normal Psychiatric: Positive: Normal, Affect/Mood Appropriate Diagnostics - Vital Signs Vital Signs Temp Pulse Resp BP Pulse Ox 11/14/16 11:16 97.6 F 71 32 117/71 90 - Laboratory Lab Results: Lab Results 11/14/16 11/14/16 11/14/16 Range/Units 11:32 11:32 11:32 WBC 24.0 H (3.5-10.8) 10^3/ul RBC 5.42 H (4.0-5.4) 10^6/ul Hgb 15.9 (14.0-18.0) g/dl Hct 48 (42-52) % MCV 88 (80-94) fL MCH 29 (27-31) pg MCHC 33 (31-36) g/dl RDW 14 (10.5-15) % Plt Count 303 (150-450) 10^3/ul MPV 8 (7.4-10.4) um3 Neut % (Auto) 79.0 (38-83) % Lymph % (Auto) 11.4 L (25-47) % [place] % (Auto) 4.7 (1-9) % Eos % (Auto) 4.2 (0-6) % Baso % (Auto) 0.7 (0-2) % Absolute Neuts (auto) 19.0 H (1.5-7.7) 10^3/ul Absolute Lymphs (auto) 2.7 (1.0-4.8) 10^3/ul Absolute Monos (auto) 1.1 H (0-0.8) 10^3/ul Absolute Eos (auto) 1.0 H (0-0.6) 10^3/ul Absolute Basos (auto) 0.2 (0-0.2) 10^3/ul Absolute Nucleated RBC 0.01 10^3/ul Nucleated RBC % 0 INR (Anticoag Therapy) (0.89-1.11) Sodium 131 L (133-145) mmol/L Potassium 3.7 (3.5-5.0) mmol/L Chloride 98 L (101-111) mmol/L Carbon Dioxide 27 (22-32) mmol/L Anion Gap 6 (2-11) mmol/L BUN 28 H (6-24) mg/dL Creatinine 0.81 (0.67-1.17) mg/dL Est GFR ( Amer) 116.2 (>60) Est GFR (Non-Af Amer) 90.4 (>60) BUN/Creatinine Ratio 34.6 H (8-20) Glucose 155 H (70-100) mg/dL Lactic Acid 1.8 (0.5-2.0) mmol/L Calcium 9.1 (8.6-10.3) mg/dL Total Bilirubin 0.80 (0.2-1.0) mg/dL AST 35 (13-39) U/L ALT 28 (7-52) U/L Alkaline Phosphatase 81 (34-104) U/L Troponin I 0.46 H* (<0.04) ng/mL B-Natriuretic Peptide ( - 100) pg/mL Total Protein 6.8 (6.4-8.9) g/dL Albumin 3.7 (3.2-5.2) g/dL Globulin 3.1 (2-4) g/dL Albumin/Globulin Ratio 1.2 (1-3) TSH 3.77 (0.34-5.60) mcIU/mL 11/14/16 11/14/16 Range/Units 11:32 11:32 WBC (3.5-10.8) 10^3/ul RBC (4.0-5.4) 10^6/ul Hgb (14.0-18.0) g/dl Hct (42-52) % MCV (80-94) fL MCH (27-31) pg MCHC (31-36) g/dl RDW (10.5-15) % Plt Count (150-450) 10^3/ul MPV (7.4-10.4) um3 Neut % (Auto) (38-83) % Lymph % (Auto) (25-47) % [place] % (Auto) (1-9) % Eos % (Auto) (0-6) % Baso % (Auto) (0-2) % Absolute Neuts (auto) (1.5-7.7) 10^3/ul Absolute Lymphs (auto) (1.0-4.8) 10^3/ul Absolute Monos (auto) (0-0.8) 10^3/ul Absolute Eos (auto) (0-0.6) 10^3/ul Absolute Basos (auto) (0-0.2) 10^3/ul Absolute Nucleated RBC 10^3/ul Nucleated RBC % INR (Anticoag Therapy) 1.08 (0.89-1.11) Sodium (133-145) mmol/L Potassium (3.5-5.0) mmol/L Chloride (101-111) mmol/L Carbon Dioxide (22-32) mmol/L Anion Gap (2-11) mmol/L BUN (6-24) mg/dL Creatinine (0.67-1.17) mg/dL Est GFR ( Amer) (>60) Est GFR (Non-Af Amer) (>60) BUN/Creatinine Ratio (8-20) Glucose (70-100) mg/dL Lactic Acid (0.5-2.0) mmol/L Calcium (8.6-10.3) mg/dL Total Bilirubin (0.2-1.0) mg/dL AST (13-39) U/L ALT (7-52) U/L Alkaline Phosphatase (34-104) U/L Troponin I (<0.04) ng/mL B-Natriuretic Peptide 944 H ( - 100) pg/mL Total Protein (6.4-8.9) g/dL Albumin (3.2-5.2) g/dL Globulin (2-4) g/dL Albumin/Globulin Ratio (1-3) TSH (0.34-5.60) mcIU/mL Result Diagrams: 11/14/16 11:32 11/14/16 11:32 Lab Statement: Any lab studies that have been ordered have been reviewed, and results considered in the medical decision making process. - Radiology CXR Xray Interpretation: Positive (See Comments) - IMPRESSION: CHRONIC INTERSTITIAL LUNG DISEASE WITH POSSIBLE SUPERIMPOSED CONGESTIVE HEART FAILURE AND/OR PNEUMONIA. Radiology Interpretation Completed By: Radiologist - EKG 1201 Cardiac Rate: NL - 65 bpm EKG Rhythm: Sinus Rhythm EKG Interpretation: Baseline wonder. Course/Dx - Course Course Of Treatment: Mr. Cervantes has a history of pulmonary fibrosis and has had increasing SOB for the last week or so. He also has had some swelling in his legs and a dry cough. He was much worse this AM and his called his son-in- law to help bring him to the hospital. His son-in-law felt that EMS would be more appropriate when he saw Mr. Cervantes and ontheir arrival they placed him on C -Pap and transported him in. On arrival he was tachypneic and his SP)2 was marginal and he was placed on BiPap. He had crackles in his lungs and some pitting edema. His labs revealed a WBC of 24 K and a BNP of 900. CXR was read as possible CHF and/or infiltrate. HE was given antibiotics and lasix and admitted to the ICU. - Diagnoses Provider Diagnoses: Acute respiratory insufficiency - Physician Notifications Discussed Care of Patient With: Gui Reid - Will admit pt Time Discussed With Above Provider: 12:16 - Critical Care Time Critical Care Time: 30-74 min Discharge - Discharge Plan Condition: Stable Disposition: ADMITTED TO [facility] documentation as recorded by the Ivone kim Alok accurately reflects the service I personally performed and the decisions made by me, Nakul Reeder MD.
[2016-11-14 16:50] LABS: EPAP 7; FIO2 50; IPAP 15
[2016-11-14 16:53] LABS: PCO2 Arterial 50 mmHg (35-45)
--- NOTE | 2016-11-14 16:55 | RAD ---
INDICATION: Shortness of breath evaluate for pulmonary embolism. COMPARISON: Comparison is made with a prior CT angiogram of the chest from August 23, 2016 and a prior chest x-ray study from November 14, 2016. TECHNIQUE: A CT angiogram of the chest was performed with intravenous following intravenous injection of 66 ml of Omnipaque 350 nonionic contrast. Contiguous axial sections were obtained from the lung apices through the lung bases. Images were reconstructed in the coronal and sagittal planes. FINDINGS: The central pulmonary arteries are enlarged most consistent with pulmonary artery hypertension. There are couple intraluminal defects present in right lower lobe basilar segmental arteries most consistent with pulmonary emboli. The heart is moderately enlarged. No pericardial effusion is present. There are coronary artery calcifications. The thoracic aorta is normal in caliber. There is mild calcific plaque present. There is an enlarged right paratracheal lymph node measuring up to 1.4 cm in size which is unchanged from the prior study. No other enlarged mediastinal or hilar lymph nodes are seen. There is a moderate size hiatal hernia present which is unchanged. There is right upper lobe and bilateral lower lobe bronchiectasis. There is diffuse prominence of the interstitial markings consistent with moderate to severe chronic interstitial lung disease. No pleural effusion is seen. There are few scattered groundglass infiltrates likely representing atelectasis less likely pneumonia. There is a severe compression fracture of the T6 vertebral body which is progressed from the prior exam. There is also a moderate compression fracture of the L1 vertebral body which appears chronic. The results of this exam were called to the referring clinician. IMPRESSION: 1. PULMONARY EMBOLI IN TWO RIGHT BASILAR SEGMENTAL ARTERIES. 2. CHRONIC INTERSTITIAL LUNG DISEASE AND PULMONARY ARTERY HYPERTENSION. 3. SMALL BILATERAL GROUNDGLASS INFILTRATES POSSIBLY REPRESENTING ATELECTASIS LESS LIKELY PNEUMONIA.. 4. SEVERE COMPRESSION FRACTURE OF THE T6 VERTEBRAL BODY DEMONSTRATING PROGRESSION FROM THE PRIOR STUDY. 5. MODERATE SIZE HIATAL HERNIA, UNCHANGED.
--- NOTE | 2016-11-14 17:12 | PN ---
Progress Note - Progress Note Date of Service: 11/14/16 Note: Discussion with Family Patient made DNR by surrogate/ But they are okay with trial of intubation for acute respiratory failure. CTA chest findings + for RLL basilar seg PE; atelectasis+ Will start on heparin IV infusion for PE. Gui Reid Director [employer]
[2016-11-14] MEDS ORDERED: Heparin DRIP 25,000 UNITS(*) 25,000 UNITS/500 ML BAG IVPB SCH (17:15)
[2016-11-14 17:48] LABS: Hematocrit 47 % (42-52); Hemoglobin 15.9 g/dl (14.0-18.0); Mean Corpuscular HGB Conc 34 g/dl (31-36); Mean Corpuscular Hemoglobin 30 pg (27-31); Mean Corpuscular Volume 88 fL (80-94); Mean Platelet Volume 8 um3 (7.4-10.4); Red Cell Distribution Width 14 % (10.5-15); White Blood Count 15.8 10^3/ul (3.5-10.8)
[2016-11-14] MEDS ORDERED: Heparin VIAL(*) 5000 UNITS/ML VIAL (FIVE THOUSAND) IV SCH (18:00)
[2016-11-14 18:59] LABS: Troponin I 0.56 ng/mL (<0.04)
--- NOTE | 2016-11-14 20:28 | RAD ---
INDICATION: Lower extremity swelling, pulmonary embolism. COMPARISON: There are no prior studies available for comparison. TECHNIQUE: Multiple real-time, color flow and Doppler tracings of both lower extremities were obtained. FINDINGS: The common femoral, femoral, profunda femoral and popliteal veins all demonstrate normal compressibility, augmentation with compression and phasic response with respiration. The posterior tibial and peroneal veins demonstrate normal compressibility and augmentation with compression. IMPRESSION: NO EVIDENCE FOR DEEP VENOUS THROMBOSIS.
[2016-11-14] MEDS ORDERED: methylPREDNISolone 125 MG* 2 ML VIAL ONE (21:11)
[2016-11-14] MEDS ORDERED: methylPREDNISolone SOD 40 MG* 1 ML VIAL IV SCH (22:00)
[2016-11-15 00:43] LABS: Troponin I 0.57 ng/mL (<0.04)
[2016-11-15] MEDS: Pantoprazole IV* 40 MG IV SCH ×2 (02:03→13:52)
[2016-11-15] MEDS ORDERED: methylPREDNISolone 125 MG* 2 ML VIAL IV SCH (04:46)
[2016-11-15 05:48] LABS: FIO2 50
[2016-11-15 05:51] LABS: PCO2 Arterial 43 mmHg (35-45)
[2016-11-15 06:41] LABS: Albumin 3.4 g/dL (3.2-5.2); Globulin 2.8 g/dL (2-4); Potassium 4.8 mmol/L (3.5-5.0); Total Bilirubin 0.7 mg/dL (0.2-1.0); Total Protein 6.2 g/dL (6.4-8.9)
[2016-11-15 07:03] LABS: Troponin I 0.5 ng/mL (<0.04)
--- NOTE | 2016-11-15 07:41 | RAD ---
HISTORY: Infiltrate and congestion COMPARISONS: November 14, 2016 VIEWS:1: Single frontal portable view of the chest at 6:20 AM FINDINGS: LINES AND TUBES: None. CARDIOMEDIASTINAL SILHOUETTE: The cardiomediastinal silhouette is stable. PLEURA: The costophrenic angles are sharp. No pleural abnormalities are noted. LUNG PARENCHYMA: There is a stable diffuse coarse pattern of reticular opacification with more focal confluent alveolar opacification of the left lung base and to a lesser extent of the right lung base ABDOMEN: The upper abdomen is clear. There is no subphrenic gas. BONES AND SOFT TISSUES: Degenerative changes are noted IMPRESSION: STABLE CHRONIC INTERSTITIAL FINDINGS WITH BIBASILAR ATELECTASIS VERSUS CONSOLIDATION, GREATER ON THE LEFT THAN ON THE RIGHT
[2016-11-15 08:50] LABS: EGFR Non-African American 83.2 (>60)
--- NOTE | 2016-11-15 09:38 | ECHO ---
Patient: WINSOME SANTIAGO [facility] Rec#: [id number] : 1930 Date: 11/15/2016 Age: 86y Height: 170.18 cm / 67.0 in Weight: 74.84 kg / 164.9 lbs Sex: M BSA: 1.86 Room#: [facility] Admit Date#: 11/14/2016 Type: Inpatient Referring: Gui Reid Reading: Javan Garcia MD Analytical Research Chemist: Torri JosephJOHN CC: Jamey Oden MD Transthoracic Echocardiogram Indication: CHF BP: 121/72 HR: 73 Rhythm: NSR with PACs Indications Congestive Heart Failure Findings History: HTN, COPD, home O2, HTN, GERD, smoker, current pulmonary embolus in basilar arteries. Technical Comments: The study is technically limited due to poor apical windows. The study is technically limited due to the patient's history of COPD. The study is technically limited due to the patient's smoking history. Completed at 0850. Left Ventricle: The left ventricular chamber size is decreased. Moderate concentric left ventricular hypertrophy is observed. There is increased basal septal hypertrophy noted without evidence of an increased gradient across the left ventricular outflow tract. Left ventricular systolic function is at the lower limits of normal. The estimated ejection fraction is 50-55%. Abnormal left ventricular diastolic function is observed. There is an E to A reversal in the mitral valve flow pattern suggestive of diastolic dysfunction. Left Atrium: The left atrial chamber size is normal. Right Ventricle: Moderator Band present. The right ventricle is slightly dilated. The right ventricular global systolic function is mildly reduced. Right Atrium: The right atrium is not well visualized. Aortic Valve: The aortic valve is trileaflet. The aortic valve leaflets are mildly thickened. There is a trace of aortic regurgitation. There is no evidence of aortic stenosis. Mitral Valve: There is mitral annular calcification. The mitral valve leaflets are mildly thickened. There is a trace of mitral regurgitation. There is no evidence of mitral stenosis. Tricuspid Valve: The tricuspid valve leaflets are mildly thickened. There is mild tricuspid regurgitation. The right ventricular systolic pressure is estimated at 74 mmHg. There is evidence of severe pulmonary hypertension. There is no tricuspid stenosis. Pulmonic Valve: The pulmonic valve appears normal. There is mild pulmonic regurgitation. There is no pulmonic stenosis. Pericardium: There is no significant pericardial effusion. Aorta: There is no dilatation of the ascending aorta. There is no dilatation of the aortic arch. There is no dilation of the aortic root. Pulmonary Artery: The main pulmonary artery appears normal. Venous: The venous system is not well visualized. Conclusions Moderate concentric left ventricular hypertrophy is observed. There is increased basal septal hypertrophy noted without evidence of an increased gradient across the left ventricular outflow tract. The estimated ejection fraction is 50-55%. Left ventricular systolic function is at the lower limits of normal. There is an E to A reversal in the mitral valve flow pattern suggestive of diastolic dysfunction. The right ventricular global systolic function is mildly reduced. The aortic valve leaflets are mildly thickened. There is a trace of aortic regurgitation. There is no evidence of aortic stenosis. There is a trace of mitral regurgitation. There is mild tricuspid regurgitation. The right ventricular systolic pressure is estimated at 74 mmHg. There is evidence of severe pulmonary hypertension. There is mild pulmonic regurgitation. There is no significant pericardial effusion. There is no dilatation of the ascending aorta. Compared to study of 11/13/14, the LV function and valve function are the same. Pulmonary HTN is newly appreciated. Measurements Name Value Normal Range RVIDd (AP) 2D 2.9 cm (0.9 - 2.6) RVDdMajor (2D) 3.8 cm (2.2 - 4.4) IVSd (2D) 1.5 cm (0.6 - 1) LVPWd (2D) 1.6 cm (0.6 - 1) LVIDd (2D) 2.28 cm (3.6 - 5.4) LVIDs (2D) 1.76 cm - LV FS (2D) 23 % (25 - 45) Aortic Annulus 2.2 cm (1.4 - 2.6) Ao root diameter (2D) 3.5 cm (2.1 - 3.5) Ascending Ao 3.1 cm (2.1 - 3.4) Aortic arch 1.3 cm (1.8 - 3.4) LA dimension (AP) 2D 3.2 cm (2.3 - 3.8) LAd ISD 4CH 4.9 cm (2.9 - 5.3) LA ISD 4CH W 3.5 cm (2.5 - 4.5) Name Value Normal Range LA ESV SP 4CH (A/L) 46 ml - LA ESV SP 2CH (A/L) 37 ml - LA ESV BP (A/L) 42 ml - LA ESV BP (A/L) index 22.4 ml/m2 - LA ESV SP 4CH (MOD) 44 ml - LA ESV SP 2CH (MOD) 35 ml - Name Value Normal Range MV E-wave Vmax 0.6 m/sec - MV deceleration time 291.3 msec - MV A-wave Vmax 1 m/sec - MV E:A ratio 0.59 ratio - LV septal e' Vmax 0.05 m/sec - LV lateral e' Vmax 0.04 m/sec - LV E:e' septal ratio 12 ratio - LV E:e' lateral ratio 15 ratio - Name Value Normal Range AV Vmax 1.11 m/sec - AV VTI 26.3 cm - AV peak gradient 4.9 mmHg - AV mean gradient 3.58 mmHg - LVOT Vmax 0.95 m/sec - LVOT VTI 23.82 cm - LVOT peak gradient 3.64 mmHg - LVOT mean gradient 2.31 mmHg - MERRITT Vmax 1.09 m/sec - Name Value Normal Range TR Vmax 4 m/sec - TR peak gradient 64 mmHg - RAP 8 mmHg - RVSP 74 mmHg - Name Value Normal Range PV Vmax 0.5 m/sec - PV peak gradient 0.84 mmHg -
--- NOTE | 2016-11-15 11:59 | PN ---
Critical Care Services: Breathing comfortably this AM. Taken off vapotherm, and maintained SpO2s > 90%. On heparin drip for pulmonary emboli Vital Signs: Temp Pulse Resp BP SpO2 FiO2 97 F 78 25 114/71 98 50 Physical Exam: Gen:Alert, oriented. Breathing comfortably. Lungs:Crackles both bases posteriorly Extremities:Warm. No cyanosis. 1+edema. Fluid Balance (Past 24 Hours): 11/13/16 11/14/16 11/15/16 06:59 06:59 06:59 Intake Total 328 Output Total 1200 Balance -872 Weight 163 lb 2.2oz Intake: Heparin 298 Oral 30 Output: Quinones 1200 Labs: Laboratory Results - last 24 hr 11/15/16 05:35 Patient Temperature Not Reportable ABG pH 7.44 ABG pCO2 43 ABG pO2 174 H ABG HCO3 28.3 ABG O2 Saturation 99.5 H ABG Base Excess 4.4 H Respiration Rate Not Reportable O2 Delivery Device vapotherm Ventilator Type Not Reportable Vent Mode Not Reportable FiO2 50 11/15/16 06:05 Sodium 133 Potassium 4.8 Chloride 96 L Carbon Dioxide 33 H BUN 27 H Creatinine 0.87 Glucose 158 H Calcium 9.0 Total Bilirubin 0.70 AST 21 ALT 21 Alkaline Phosphatase 74 Troponin I 0.50 H* Total Protein 6.2 L Albumin 3.4 Studies: Venous Ultrasound of legs: negative. CXR: Interstitial fibrosis with bibasilar atelectasis. Cannot r/o an infiltrative process. Cardiac ECHO: LVH with diastolic dysfunction. 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 Plan: Will start oral anticoagulation today (with rivaroxaban) and d/c heparin drip.
[2016-11-15] MEDS ORDERED: Levofloxacin 750 MG IVPREMIX(* 750 MG/150 ML BAG IVPB SCH (12:00)
[2016-11-15] MEDS: Levofloxacin 500 MG IVPREMIX(* 500 MG/100 ML BAG IVPB SCH (12:25)
[2016-11-15] MEDS: Rivaroxaban TAB(*) 15 MG PO SCH ×2 (12:26→21:34)
[2016-11-15] MEDS: methylPREDNISolone 125 MG* 2 ML VIAL IV SCH ×2 (13:52→21:33)
[2016-11-15 16:06] LABS: Hematocrit 49 % (42-52); Hemoglobin 16.2 g/dl (14.0-18.0); Mean Corpuscular HGB Conc 33 g/dl (31-36); Mean Corpuscular Hemoglobin 29 pg (27-31); Mean Corpuscular Volume 89 fL (80-94); Mean Platelet Volume 8 um3 (7.4-10.4); Red Blood Count 5.53 10^6/ul (4.0-5.4); Red Cell Distribution Width 14 % (10.5-15); White Blood Count 16.8 10^3/ul (3.5-10.8)
[2016-11-15] MEDS: Temazepam CAP* 15 MG PO PRN (21:34)
[2016-11-16] MEDS: Pantoprazole IV* 40 MG IV SCH ×2 (03:01→15:04)
[2016-11-16] MEDS: methylPREDNISolone 125 MG* 2 ML VIAL IV SCH ×3 (06:10→21:17)
[2016-11-16 06:25] LABS: Add Diff/Slide Review? Slide Review Added; Comments Flag Yes; Hematocrit 48 % (42-52); Hemoglobin 15.6 g/dl (14.0-18.0); Mean Corpuscular HGB Conc 33 g/dl (31-36); Mean Corpuscular Hemoglobin 29 pg (27-31); Mean Corpuscular Volume 89 fL (80-94); Mean Platelet Volume 9 um3 (7.4-10.4); Red Cell Distribution Width 14 % (10.5-15)
[2016-11-16 06:37] LABS: Albumin 3.4 g/dL (3.2-5.2); BUN/Creatinine Ratio 36.4 (8-20); Calcium 9.1 mg/dL (8.6-10.3); EGFR African American 147.2 (>60); EGFR Non-African American 114.4 (>60); Globulin 2.6 g/dL (2-4); Potassium 3.8 mmol/L (3.5-5.0); Total Bilirubin 0.7 mg/dL (0.2-1.0)
[2016-11-16] MEDS: Oxymetazoline 0.05% NASAL SPR* 15 ML BTL BOTH NARES SCH ×2 (09:09→21:23)
[2016-11-16] MEDS: Surgical Lubricant STERILE* 120 GM TOP.GEL TOPICAL SCH ×3 (09:09→21:53)
[2016-11-16] MEDS: Rivaroxaban TAB(*) 15 MG PO SCH ×2 (10:59→21:13)
[2016-11-16] MEDS: Levofloxacin 500 MG IVPREMIX(* 500 MG/100 ML BAG IVPB SCH (11:51)
[2016-11-16] MEDS ORDERED: Silver Nitrate/Potassium Nitr* 1 EA STICK TOPICAL ONE (17:00)
[2016-11-16] MEDS ORDERED: Lidocaine 4% GEL* 10 GM TUBE TOPICAL ONE (17:00)
--- NOTE | 2016-11-16 18:18 | PN ---
Subjective Date of Service: 11/16/16 Interval History: Events reviewed form overnight epistaxis. Recurred again today which resolved with pressure Feels breathing is at baseline besides bleeding has no complaints Objective Active Medications: Albuterol (Ventolin 2.5 Mg/3 Ml Neb.Becky*) 2.5 mg INH Q2H PRN PRN Reason: RESPIRATORY DISTRESS Levofloxacin/Dextrose (Levaquin 500 Mg Ivpremix(*)) 500 mg in 100 mls @ 100 mls /hr IVPB Q24H [facility] Last Admin: 11/16/16 11:51 Dose: 100 mls/hr Ipratropium [place] (Atrovent 0.5 Mg Neb.Becky*) 0.5 mg INH Q4H PRN PRN Reason: SOB/WHEEZING Methylprednisolone Sodium Succinate (Solu-Medrol 125mg *) 60 mg IV Q8HR [facility] Last Admin: 11/16/16 15:04 Dose: 60 mg Morphine Sulfate (Morphine Inj (Syringe)*) 2 mg IV ONCE PRN PRN Reason: RESPIRATORY DISTRESS Last Admin: 11/14/16 16:05 Dose: 2 mg Multi-Ingredient Gel (Surgilube*) 1 applic TOPICAL TID [facility] Last Admin: 11/16/16 15:12 Dose: 1 applic Oxymetazoline HCl (Afrin 0.05% Nasal [place]*) 3 spray BOTH NARES BID [facility] Last Admin: 11/16/16 09:09 Dose: 3 nasal.spr Pantoprazole Sodium (Protonix Iv*) 40 mg IV Q12H [facility] Last Admin: 11/16/16 15:04 Dose: 40 mg Rivaroxaban (Xarelto(*)) 15 mg PO BID [facility] Last Admin: 11/16/16 10:59 Dose: 15 mg Temazepam (Restoril Cap*) 15 mg PO BEDTIME PRN PRN Reason: INSOMNIA Last Admin: 11/15/16 21:34 Dose: 15 mg Vital Signs 11/15/16 11/15/16 11/16/16 19:22 20:00 00:33 Temperature 97.5 F Pulse Rate 79 82 Respiratory 22 22 20 Rate Blood Pressure 118/59 130/76 (mmHg) O2 Sat by Pulse 100 100 Oximetry 11/16/16 11/16/16 11/16/16 03:14 03:26 07:12 Temperature 97.5 F 97.4 F Pulse Rate 68 71 Respiratory 24 16 Rate Blood Pressure 121/74 115/66 (mmHg) O2 Sat by Pulse 97 96 Oximetry 11/16/16 11/16/16 11/16/16 08:00 08:43 12:00 Temperature 97.8 F Pulse Rate 78 74 Respiratory 20 20 16 Rate Blood Pressure 113/63 (mmHg) O2 Sat by Pulse 94 92 Oximetry 11/16/16 15:15 Temperature 96.8 F Pulse Rate 86 Respiratory 24 Rate Blood Pressure 111/48 (mmHg) O2 Sat by Pulse 96 Oximetry Oxygen Devices in Use Now: Nasal Cannula - 4L Appearance: elderly, NAD Eyes: No Scleral Icterus, PERRLA Ears/Nose/Mouth/Throat: Mucous Membranes Moist, - - dried blood at back of throat Neck: NL Appearance and Movements; NL JVP, Trachea Midline Respiratory: Symmetrical Chest Expansion and Respiratory Effort, - - fine rales throughout but worse in bases Cardiovascular: RRR Abdominal: NL Sounds; No Tenderness; No Distention, No Hepatosplenomegaly Skin: - - 3+ LE edema Neurological: Alert and Oriented x 3 Result Diagrams: 11/16/16 05:49 11/16/16 05:49 Additional Lab and Data: Lab Results 11/14/16 11/14/16 11/14/16 Range/Units 11:32 11:32 11:32 WBC 24.0 H (3.5-10.8) 10^3/ul RBC 5.42 H (4.0-5.4) 10^6/ul Hgb 15.9 (14.0-18.0) g/dl Hct 48 (42-52) % MCV 88 (80-94) fL MCH 29 (27-31) pg MCHC 33 (31-36) g/dl RDW 14 (10.5-15) % Plt Count 303 (150-450) 10^3/ul MPV 8 (7.4-10.4) um3 Neut % (Auto) 79.0 (38-83) % Lymph % (Auto) 11.4 L (25-47) % [place] % (Auto) 4.7 (1-9) % Eos % (Auto) 4.2 (0-6) % Baso % (Auto) 0.7 (0-2) % Absolute Neuts (auto) 19.0 H (1.5-7.7) 10^3/ul Absolute Lymphs (auto) 2.7 (1.0-4.8) 10^3/ul Absolute Monos (auto) 1.1 H (0-0.8) 10^3/ul Absolute Eos (auto) 1.0 H (0-0.6) 10^3/ul Absolute Basos (auto) 0.2 (0-0.2) 10^3/ul Absolute Nucleated RBC 0.01 10^3/ul Nucleated RBC % 0 INR (Anticoag Therapy) (0.89-1.11) Sodium 131 L (133-145) mmol/L Potassium 3.7 (3.5-5.0) mmol/L Chloride 98 L (101-111) mmol/L Carbon Dioxide 27 (22-32) mmol/L Anion Gap 6 (2-11) mmol/L BUN 28 H (6-24) mg/dL Creatinine 0.81 (0.67-1.17) mg/dL Est GFR ( Amer) 116.2 (>60) Est GFR (Non-Af Amer) 90.4 (>60) BUN/Creatinine Ratio 34.6 H (8-20) Glucose 155 H (70-100) mg/dL Lactic Acid 1.8 (0.5-2.0) mmol/L Calcium 9.1 (8.6-10.3) mg/dL Total Bilirubin 0.80 (0.2-1.0) mg/dL AST 35 (13-39) U/L ALT 28 (7-52) U/L Alkaline Phosphatase 81 (34-104) U/L Troponin I 0.46 H* (<0.04) ng/mL B-Natriuretic Peptide ( - 100) pg/mL Total Protein 6.8 (6.4-8.9) g/dL Albumin 3.7 (3.2-5.2) g/dL Globulin 3.1 (2-4) g/dL Albumin/Globulin Ratio 1.2 (1-3) TSH 3.77 (0.34-5.60) mcIU/mL 11/14/16 11/14/16 Range/Units 11:32 11:32 WBC (3.5-10.8) 10^3/ul RBC (4.0-5.4) 10^6/ul Hgb (14.0-18.0) g/dl Hct (42-52) % MCV (80-94) fL MCH (27-31) pg MCHC (31-36) g/dl RDW (10.5-15) % Plt Count (150-450) 10^3/ul MPV (7.4-10.4) um3 Neut % (Auto) (38-83) % Lymph % (Auto) (25-47) % [place] % (Auto) (1-9) % Eos % (Auto) (0-6) % Baso % (Auto) (0-2) % Absolute Neuts (auto) (1.5-7.7) 10^3/ul Absolute Lymphs (auto) (1.0-4.8) 10^3/ul Absolute Monos (auto) (0-0.8) 10^3/ul Absolute Eos (auto) (0-0.6) 10^3/ul Absolute Basos (auto) (0-0.2) 10^3/ul Absolute Nucleated RBC 10^3/ul Nucleated RBC % INR (Anticoag Therapy) 1.08 (0.89-1.11) Sodium (133-145) mmol/L Potassium (3.5-5.0) mmol/L Chloride (101-111) mmol/L Carbon Dioxide (22-32) mmol/L Anion Gap (2-11) mmol/L BUN (6-24) mg/dL Creatinine (0.67-1.17) mg/dL Est GFR ( Amer) (>60) Est GFR (Non-Af Amer) (>60) BUN/Creatinine Ratio (8-20) Glucose (70-100) mg/dL Lactic Acid (0.5-2.0) mmol/L Calcium (8.6-10.3) mg/dL Total Bilirubin (0.2-1.0) mg/dL AST (13-39) U/L ALT (7-52) U/L Alkaline Phosphatase (34-104) U/L Troponin I (<0.04) ng/mL B-Natriuretic Peptide 944 H ( - 100) pg/mL Total Protein (6.4-8.9) g/dL Albumin (3.2-5.2) g/dL Globulin (2-4) g/dL Albumin/Globulin Ratio (1-3) TSH (0.34-5.60) mcIU/mL Microbiology and Other Data: Microbiology 11/14/16 14:25 Urine Culture - Final Urine No Growth (<1,000 CFU/mL) 11/14/16 14:20 Nasal Screen MRSA (PCR)([facility]ON) - Final Nasal Mrsa Negative 11/14/16 14:20 Influenza Types A,B Antigen (ELDON) - Final Nasopharyngeal Specimen received for Influenza A/B Molecular testing Assess/Plan/Problems-Billing Assessment: 86yo M recent dx IDL s/p steroids p/w increasing SOB found with PEs and suspected PNA with hospital stay complicated by epistaxis - Patient Problems (1) Acute and chronic respiratory failure with hypoxia Comment: In setting of PNA, ILD, and new PEs see treatment below (2) Pulmonary embolism Comment: jesse (3) Pneumonia Comment: levaquin WBC noted to be rising. Consider broader coverge if continues or fevers develop (4) Epistaxis Comment: on jesse seen by ENT 11/16 and right bleeding artery cauterized If recurrent bleed - marianelaak jack in afrin, pack nose, apply pressure, and leave in place until ENT can reevaluate (5) Interstitial lung disease Comment: with chronic respiratory failure on 4L NC at home (6) DVT prophylaxis Comment: jesse
[2016-11-16 18:23] LABS: Hematocrit 48 % (42-52); Hemoglobin 15.9 g/dl (14.0-18.0); Mean Corpuscular HGB Conc 33 g/dl (31-36); Mean Corpuscular Hemoglobin 29 pg (27-31); Mean Corpuscular Volume 88 fL (80-94); Mean Platelet Volume 8 um3 (7.4-10.4); Red Blood Count 5.48 10^6/ul (4.0-5.4); Red Cell Distribution Width 14 % (10.5-15); White Blood Count 24.5 10^3/ul (3.5-10.8)
[2016-11-16 18:25] LABS: Comments Flag Yes
[2016-11-16 18:26] LABS: Add Diff/Slide Review? Slide Review Added
--- NOTE | 2016-11-17 02:23 | CONS ---
CONSULTATION REPORT: DATE OF CONSULT: 11/16/16 REASON FOR CONSULT: Epistaxis. REQUESTING CONSULTATION DOCTOR: Dr. Young. HISTORY OF PRESENT ILLNESS: The patient is an 86-year-old with PE, who has been started on Xarelto and he started having right-sided epistaxis. He has had 2 episodes today. He has scabbing in the right nostril and says that this is the site that is bleeding. On examination, he has a bleeding site on the right anterior septum. He was packed with some oxymetazoline and 4% lidocaine gel and after this was removed, I cleaned up the scabbing and then did silver nitrate cautery to cauterize the bleeding site. The patient tolerated this procedure well with resolution of the bleeding. I cleaned out the clot from his nose and nasopharynx. ASSESSMENT AND PLAN: The patient has epistaxis on the right side, treated with silver nitrate cautery. He is being anticoagulated on Xarelto. Recommendation is to apply some antibiotic ointment a couple of times a day. If this continues , he will have to have a pack placed. [id number]/CPS #: [id number] [facility]
[2016-11-17] MEDS: Pantoprazole IV* 40 MG IV SCH ×2 (02:56→13:24)
[2016-11-17 05:26] LABS: Hematocrit 44 % (42-52); Hemoglobin 14.7 g/dl (14.0-18.0); Mean Corpuscular HGB Conc 34 g/dl (31-36); Mean Corpuscular Hemoglobin 29 pg (27-31); Mean Corpuscular Volume 87 fL (80-94); Mean Platelet Volume 8 um3 (7.4-10.4); Red Blood Count 5.01 10^6/ul (4.0-5.4); Red Cell Distribution Width 14 % (10.5-15); White Blood Count 22.1 10^3/ul (3.5-10.8)
[2016-11-17 05:29] LABS: Comments Flag Yes
[2016-11-17 05:47] LABS: BUN/Creatinine Ratio 40.9 (8-20); Calcium 8.8 mg/dL (8.6-10.3); EGFR African American 147.2 (>60); EGFR Non-African American 114.4 (>60); Globulin 2.4 g/dL (2-4); Potassium 3.7 mmol/L (3.5-5.0); Total Bilirubin 0.8 mg/dL (0.2-1.0); Total Protein 5.4 g/dL (6.4-8.9)
[2016-11-17] MEDS: methylPREDNISolone 125 MG* 2 ML VIAL IV SCH ×3 (06:34→21:14)
[2016-11-17 09:00] LABS: C Reactive Protein 10.13 mg/L (< 5.00)
[2016-11-17 09:02] LABS: C Reactive Protein 2.84 mg/L (< 5.00)
[2016-11-17] MEDS: Rivaroxaban TAB(*) 15 MG PO SCH ×2 (09:45→19:59)
[2016-11-17] MEDS: Oxymetazoline 0.05% NASAL SPR* 15 ML BTL BOTH NARES SCH ×2 (09:47→19:15)
[2016-11-17] MEDS: Surgical Lubricant STERILE* 120 GM TOP.GEL TOPICAL SCH ×3 (09:48→19:16)
[2016-11-17] MEDS: Levofloxacin 500 MG IVPREMIX(* 500 MG/100 ML BAG IVPB SCH (11:44)
[2016-11-17 17:31] LABS: Hematocrit 47 % (42-52); Hemoglobin 15.2 g/dl (14.0-18.0); Mean Corpuscular HGB Conc 33 g/dl (31-36); Mean Corpuscular Hemoglobin 29 pg (27-31); Mean Corpuscular Volume 88 fL (80-94); Mean Platelet Volume 8 um3 (7.4-10.4); Red Blood Count 5.28 10^6/ul (4.0-5.4); Red Cell Distribution Width 14 % (10.5-15); White Blood Count 22.5 10^3/ul (3.5-10.8)
[2016-11-17 17:39] LABS: Comments Flag Yes
--- NOTE | 2016-11-17 18:00 | PN ---
Subjective Date of Service: 11/17/16 Interval History: Seen with and daughter at bedside Pt is tachypneic but has no complaints of SOB or pain We discussed hospice in light of his severe SOB and he was interested in meeting with Dr. Patrick whose visit is documented separately Objective Active Medications: Albuterol (Ventolin 2.5 Mg/3 Ml Neb.Becky*) 2.5 mg INH Q2H PRN PRN Reason: RESPIRATORY DISTRESS Levofloxacin/Dextrose (Levaquin 500 Mg Ivpremix(*)) 500 mg in 100 mls @ 100 mls /hr IVPB Q24H [facility] Last Admin: 11/17/16 11:44 Dose: 100 mls/hr Ipratropium [place] (Atrovent 0.5 Mg Neb.Becky*) 0.5 mg INH Q4H PRN PRN Reason: SOB/WHEEZING Methylprednisolone Sodium Succinate (Solu-Medrol 125mg *) 60 mg IV Q8HR [facility] Last Admin: 11/17/16 13:24 Dose: 60 mg Morphine Sulfate (Morphine Inj (Syringe)*) 2 mg IV ONCE PRN PRN Reason: RESPIRATORY DISTRESS Last Admin: 11/14/16 16:05 Dose: 2 mg Multi-Ingredient Gel (Surgilube*) 1 applic TOPICAL TID [facility] Last Admin: 11/17/16 13:31 Dose: 1 applic Oxymetazoline HCl (Afrin 0.05% Nasal [place]*) 3 spray BOTH NARES BID [facility] Last Admin: 11/17/16 09:47 Dose: 3 nasal.spr Pantoprazole Sodium (Protonix Iv*) 40 mg IV Q12H [facility] Last Admin: 11/17/16 13:24 Dose: 40 mg Rivaroxaban (Xarelto(*)) 15 mg PO BID [facility] Last Admin: 11/17/16 09:45 Dose: 15 mg Temazepam (Restoril Cap*) 15 mg PO BEDTIME PRN PRN Reason: INSOMNIA Last Admin: 11/15/16 21:34 Dose: 15 mg Vital Signs 11/16/16 11/16/16 11/16/16 20:00 20:28 21:53 Temperature 96.4 F Pulse Rate 81 Respiratory 24 28 Rate Blood Pressure 111/37 (mmHg) O2 Sat by Pulse 93 96 Oximetry 11/16/16 11/16/16 11/17/16 23:42 23:58 03:46 Temperature 97.5 F 97.8 F Pulse Rate 79 87 Respiratory 20 20 Rate Blood Pressure 118/72 120/78 (mmHg) O2 Sat by Pulse 88 97 99 Oximetry 11/17/16 11/17/16 11/17/16 07:33 08:00 09:20 Temperature 97.4 F Pulse Rate 75 81 Respiratory 22 16 16 Rate Blood Pressure 114/67 (mmHg) O2 Sat by Pulse 96 97 Oximetry 11/17/16 11/17/16 11:01 15:56 Temperature 97.2 F 97.0 F Pulse Rate 74 76 Respiratory 22 24 Rate Blood Pressure 105/70 120/64 (mmHg) O2 Sat by Pulse 95 96 Oximetry Oxygen Devices in Use Now: Simple Face Mask - 5L Appearance: tachpneic Eyes: No Scleral Icterus, PERRLA Ears/Nose/Mouth/Throat: - - dry MM Neck: NL Appearance and Movements; NL JVP, Trachea Midline Respiratory: Symmetrical Chest Expansion and Respiratory Effort, - - diffuse fine rales Cardiovascular: RRR Abdominal: NL Sounds; No Tenderness; No Distention, No Hepatosplenomegaly Lymphatic: No Cervical Adenopathy Extremities: - - tarce to 1+ edema Neurological: Alert and Oriented x 3 Result Diagrams: 11/17/16 17:14 11/17/16 04:49 Additional Lab and Data: Lab Results 11/14/16 11/14/16 11/14/16 Range/Units 11:32 11:32 11:32 WBC 24.0 H (3.5-10.8) 10^3/ul RBC 5.42 H (4.0-5.4) 10^6/ul Hgb 15.9 (14.0-18.0) g/dl Hct 48 (42-52) % MCV 88 (80-94) fL MCH 29 (27-31) pg MCHC 33 (31-36) g/dl RDW 14 (10.5-15) % Plt Count 303 (150-450) 10^3/ul MPV 8 (7.4-10.4) um3 Neut % (Auto) 79.0 (38-83) % Lymph % (Auto) 11.4 L (25-47) % [place] % (Auto) 4.7 (1-9) % Eos % (Auto) 4.2 (0-6) % Baso % (Auto) 0.7 (0-2) % Absolute Neuts (auto) 19.0 H (1.5-7.7) 10^3/ul Absolute Lymphs (auto) 2.7 (1.0-4.8) 10^3/ul Absolute Monos (auto) 1.1 H (0-0.8) 10^3/ul Absolute Eos (auto) 1.0 H (0-0.6) 10^3/ul Absolute Basos (auto) 0.2 (0-0.2) 10^3/ul Absolute Nucleated RBC 0.01 10^3/ul Nucleated RBC % 0 INR (Anticoag Therapy) (0.89-1.11) Sodium 131 L (133-145) mmol/L Potassium 3.7 (3.5-5.0) mmol/L Chloride 98 L (101-111) mmol/L Carbon Dioxide 27 (22-32) mmol/L Anion Gap 6 (2-11) mmol/L BUN 28 H (6-24) mg/dL Creatinine 0.81 (0.67-1.17) mg/dL Est GFR ( Amer) 116.2 (>60) Est GFR (Non-Af Amer) 90.4 (>60) BUN/Creatinine Ratio 34.6 H (8-20) Glucose 155 H (70-100) mg/dL Lactic Acid 1.8 (0.5-2.0) mmol/L Calcium 9.1 (8.6-10.3) mg/dL Total Bilirubin 0.80 (0.2-1.0) mg/dL AST 35 (13-39) U/L ALT 28 (7-52) U/L Alkaline Phosphatase 81 (34-104) U/L Troponin I 0.46 H* (<0.04) ng/mL B-Natriuretic Peptide ( - 100) pg/mL Total Protein 6.8 (6.4-8.9) g/dL Albumin 3.7 (3.2-5.2) g/dL Globulin 3.1 (2-4) g/dL Albumin/Globulin Ratio 1.2 (1-3) TSH 3.77 (0.34-5.60) mcIU/mL 11/14/16 11/14/16 Range/Units 11:32 11:32 WBC (3.5-10.8) 10^3/ul RBC (4.0-5.4) 10^6/ul Hgb (14.0-18.0) g/dl Hct (42-52) % MCV (80-94) fL MCH (27-31) pg MCHC (31-36) g/dl RDW (10.5-15) % Plt Count (150-450) 10^3/ul MPV (7.4-10.4) um3 Neut % (Auto) (38-83) % Lymph % (Auto) (25-47) % [place] % (Auto) (1-9) % Eos % (Auto) (0-6) % Baso % (Auto) (0-2) % Absolute Neuts (auto) (1.5-7.7) 10^3/ul Absolute Lymphs (auto) (1.0-4.8) 10^3/ul Absolute Monos (auto) (0-0.8) 10^3/ul Absolute Eos (auto) (0-0.6) 10^3/ul Absolute Basos (auto) (0-0.2) 10^3/ul Absolute Nucleated RBC 10^3/ul Nucleated RBC % INR (Anticoag Therapy) 1.08 (0.89-1.11) Sodium (133-145) mmol/L Potassium (3.5-5.0) mmol/L Chloride (101-111) mmol/L Carbon Dioxide (22-32) mmol/L Anion Gap (2-11) mmol/L BUN (6-24) mg/dL Creatinine (0.67-1.17) mg/dL Est GFR ( Amer) (>60) Est GFR (Non-Af Amer) (>60) BUN/Creatinine Ratio (8-20) Glucose (70-100) mg/dL Lactic Acid (0.5-2.0) mmol/L Calcium (8.6-10.3) mg/dL Total Bilirubin (0.2-1.0) mg/dL AST (13-39) U/L ALT (7-52) U/L Alkaline Phosphatase (34-104) U/L Troponin I (<0.04) ng/mL B-Natriuretic Peptide 944 H ( - 100) pg/mL Total Protein (6.4-8.9) g/dL Albumin (3.2-5.2) g/dL Globulin (2-4) g/dL Albumin/Globulin Ratio (1-3) TSH (0.34-5.60) mcIU/mL Microbiology and Other Data: Microbiology 11/14/16 14:25 Urine Culture - Final Urine No Growth (<1,000 CFU/mL) 11/14/16 14:20 Nasal Screen MRSA (PCR)([facility]) - Final Nasal Mrsa Negative 11/14/16 14:20 Influenza Types A,B Antigen ([facility]ON) - Final Nasopharyngeal Specimen received for Influenza A/B Molecular testing Assess/Plan/Problems-Billing Assessment: 86yo M recent dx IDL s/p steroids p/w increasing SOB found with PEs and suspected PNA with hospital stay complicated by epistaxis - Patient Problems (1) Acute and chronic respiratory failure with hypoxia Comment: In setting of PNA, ILD, and new PEs I suspect his SOB will worsen with his underlying ILD He qualifies for hospice care and will continue discussions with family (2) Pulmonary embolism Comment: xarelto (3) Pneumonia Comment: levaquin WBC noted to elevated CRP added to admission labs. Not elevated now. Procalcitonin is nominal. I think the leukocytosis is 2/2 wbc demargination in setting of steroids (4) Epistaxis Comment: on xarelto seen by ENT 11/16 and right bleeding artery cauterized If recurrent bleed - soak guaze in afrin, pack nose, apply pressure, and leave in place until ENT can reevaluate (5) Interstitial lung disease Comment: with chronic respiratory failure on 4L NC at home (6) DVT prophylaxis Comment: xarelto Status and Disposition: pt to make decision about hospice and disposition.
[2016-11-18] MEDS: Pantoprazole IV* 40 MG IV SCH ×2 (01:10→13:00)
[2016-11-18] MEDS: methylPREDNISolone 125 MG* 2 ML VIAL IV SCH ×2 (05:04→13:00)
[2016-11-18 05:25] LABS: Hematocrit 43 % (42-52); Hemoglobin 14.4 g/dl (14.0-18.0); Mean Corpuscular HGB Conc 34 g/dl (31-36); Mean Corpuscular Hemoglobin 29 pg (27-31); Mean Corpuscular Volume 87 fL (80-94); Mean Platelet Volume 9 um3 (7.4-10.4); Red Blood Count 4.89 10^6/ul (4.0-5.4); Red Cell Distribution Width 14 % (10.5-15); White Blood Count 18.6 10^3/ul (3.5-10.8)
[2016-11-18 05:35] LABS: Albumin 3.1 g/dL (3.2-5.2); BUN/Creatinine Ratio 48.4 (8-20); Calcium 8.7 mg/dL (8.6-10.3); EGFR African American 152.5 (>60); EGFR Non-African American 118.6 (>60); Globulin 2.3 g/dL (2-4); Potassium 3.7 mmol/L (3.5-5.0); Total Bilirubin 0.9 mg/dL (0.2-1.0); Total Protein 5.4 g/dL (6.4-8.9)
[2016-11-18] MEDS: Oxymetazoline 0.05% NASAL SPR* 15 ML BTL BOTH NARES SCH ×2 (09:15→20:10)
[2016-11-18] MEDS: Rivaroxaban TAB(*) 15 MG PO SCH ×2 (09:15→20:09)
[2016-11-18] MEDS: Surgical Lubricant STERILE* 120 GM TOP.GEL TOPICAL SCH ×3 (09:16→20:10)
[2016-11-18] MEDS: Levofloxacin 500 MG IVPREMIX(* 500 MG/100 ML BAG IVPB SCH (12:58)
--- NOTE | 2016-11-18 15:26 | PN ---
Subjective Date of Service: 11/18/16 Interval History: Patient seen and examined at bedside. Previously felt SOB but now improved and breathing evenly and more calmly with face mask. Patient and family have signed MOLST stating DNR/DNI and they would like to sign on with hospicare. They are hopeful for discharge to home tomorrow; however, hospicare sign on may not be able to happen until Tuesday. CM/SW following. Patient has no other complaints and is in agreement with the plan for home with hospice. Family History: Unchanged from Admission Social History: Unchanged from Admission Past Medical History: Unchanged from Admission Objective Active Medications: Albuterol (Ventolin 2.5 Mg/3 Ml Neb.Becky*) 2.5 mg INH Q2H PRN PRN Reason: RESPIRATORY DISTRESS Levofloxacin/Dextrose (Levaquin 500 Mg Ivpremix(*)) 500 mg in 100 mls @ 100 mls /hr IVPB Q24H COUNTS INCLUDE 234 BEDS AT THE [facility] Last Admin: 11/18/16 12:58 Dose: 100 mls/hr Ipratropium [place] (Atrovent 0.5 Mg Neb.Becky*) 0.5 mg INH Q4H PRN PRN Reason: SOB/WHEEZING Methylprednisolone Sodium Succinate (Solu-Medrol 125mg *) 60 mg IV Q8HR COUNTS INCLUDE 234 BEDS AT THE [facility] Last Admin: 11/18/16 13:00 Dose: 60 mg Morphine Sulfate (Morphine Inj (Syringe)*) 2 mg IV ONCE PRN PRN Reason: RESPIRATORY DISTRESS Last Admin: 11/14/16 16:05 Dose: 2 mg Multi-Ingredient Gel (Surgilube*) 1 applic TOPICAL TID COUNTS INCLUDE 234 BEDS AT THE [facility] Last Admin: 11/18/16 13:12 Dose: 1 applic Oxymetazoline HCl (Afrin 0.05% Nasal [place]*) 3 spray BOTH NARES BID COUNTS INCLUDE 234 BEDS AT THE [facility] Last Admin: 11/18/16 09:15 Dose: 3 nasal.spr Pantoprazole Sodium (Protonix Iv*) 40 mg IV Q12H COUNTS INCLUDE 234 BEDS AT THE [facility] Last Admin: 11/18/16 13:00 Dose: 40 mg Rivaroxaban (Xarelto(*)) 15 mg PO BID COUNTS INCLUDE 234 BEDS AT THE [facility] Last Admin: 11/18/16 09:15 Dose: 15 mg Temazepam (Restoril Cap*) 15 mg PO BEDTIME PRN PRN Reason: INSOMNIA Last Admin: 11/15/16 21:34 Dose: 15 mg Vital Signs 11/17/16 11/17/16 11/17/16 15:56 18:05 19:11 Temperature 97.0 F 97.2 F Pulse Rate 76 85 Respiratory 24 18 26 Rate Blood Pressure 120/64 123/69 (mmHg) O2 Sat by Pulse 96 98 Oximetry 11/17/16 11/17/16 11/18/16 19:52 23:25 03:35 Temperature 97.4 F 97.4 F Pulse Rate 84 80 81 Respiratory 16 20 20 Rate Blood Pressure 141/79 128/72 (mmHg) O2 Sat by Pulse 92 91 93 Oximetry 11/18/16 11/18/16 11/18/16 07:26 08:00 08:59 Temperature 97.3 F Pulse Rate 75 85 Respiratory 26 16 18 Rate Blood Pressure 127/68 (mmHg) O2 Sat by Pulse 95 92 Oximetry 11/18/16 12:02 Temperature 97.3 F Pulse Rate 71 Respiratory 26 Rate Blood Pressure 116/62 (mmHg) O2 Sat by Pulse 95 Oximetry Oxygen Devices in Use Now: Simple Face Mask - 5L Appearance: Elderly male, lying in bed, NAD but mildly tachypneic. Eyes: No Scleral Icterus Ears/Nose/Mouth/Throat: Clear Oropharnyx Neck: NL Appearance and Movements; NL JVP Respiratory: Symmetrical Chest Expansion and Respiratory Effort, - - diminished , diffuse rales Cardiovascular: RRR Abdominal: NL Sounds; No Tenderness; No Distention Neurological: Alert and Oriented x 3 Lines/Tubes/Other Access: Clean, Dry and Intact Peripheral IV Nutrition: Taking PO's Result Diagrams: 11/18/16 04:21 11/18/16 04:21 Additional Lab and Data: Lab Results 11/14/16 11/14/16 11/14/16 Range/Units 11:32 11:32 11:32 WBC 24.0 H (3.5-10.8) 10^3/ul RBC 5.42 H (4.0-5.4) 10^6/ul Hgb 15.9 (14.0-18.0) g/dl Hct 48 (42-52) % MCV 88 (80-94) fL MCH 29 (27-31) pg MCHC 33 (31-36) g/dl RDW 14 (10.5-15) % Plt Count 303 (150-450) 10^3/ul MPV 8 (7.4-10.4) um3 Neut % (Auto) 79.0 (38-83) % Lymph % (Auto) 11.4 L (25-47) % [place] % (Auto) 4.7 (1-9) % Eos % (Auto) 4.2 (0-6) % Baso % (Auto) 0.7 (0-2) % Absolute Neuts (auto) 19.0 H (1.5-7.7) 10^3/ul Absolute Lymphs (auto) 2.7 (1.0-4.8) 10^3/ul Absolute Monos (auto) 1.1 H (0-0.8) 10^3/ul Absolute Eos (auto) 1.0 H (0-0.6) 10^3/ul Absolute Basos (auto) 0.2 (0-0.2) 10^3/ul Absolute Nucleated RBC 0.01 10^3/ul Nucleated RBC % 0 INR (Anticoag Therapy) (0.89-1.11) Sodium 131 L (133-145) mmol/L Potassium 3.7 (3.5-5.0) mmol/L Chloride 98 L (101-111) mmol/L Carbon Dioxide 27 (22-32) mmol/L Anion Gap 6 (2-11) mmol/L BUN 28 H (6-24) mg/dL Creatinine 0.81 (0.67-1.17) mg/dL Est GFR ( Amer) 116.2 (>60) Est GFR (Non-Af Amer) 90.4 (>60) BUN/Creatinine Ratio 34.6 H (8-20) Glucose 155 H (70-100) mg/dL Lactic Acid 1.8 (0.5-2.0) mmol/L Calcium 9.1 (8.6-10.3) mg/dL Total Bilirubin 0.80 (0.2-1.0) mg/dL AST 35 (13-39) U/L ALT 28 (7-52) U/L Alkaline Phosphatase 81 (34-104) U/L Troponin I 0.46 H* (<0.04) ng/mL B-Natriuretic Peptide ( - 100) pg/mL Total Protein 6.8 (6.4-8.9) g/dL Albumin 3.7 (3.2-5.2) g/dL Globulin 3.1 (2-4) g/dL Albumin/Globulin Ratio 1.2 (1-3) TSH 3.77 (0.34-5.60) mcIU/mL 11/14/16 11/14/16 Range/Units 11:32 11:32 WBC (3.5-10.8) 10^3/ul RBC (4.0-5.4) 10^6/ul Hgb (14.0-18.0) g/dl Hct (42-52) % MCV (80-94) fL MCH (27-31) pg MCHC (31-36) g/dl RDW (10.5-15) % Plt Count (150-450) 10^3/ul MPV (7.4-10.4) um3 Neut % (Auto) (38-83) % Lymph % (Auto) (25-47) % [place] % (Auto) (1-9) % Eos % (Auto) (0-6) % Baso % (Auto) (0-2) % Absolute Neuts (auto) (1.5-7.7) 10^3/ul Absolute Lymphs (auto) (1.0-4.8) 10^3/ul Absolute Monos (auto) (0-0.8) 10^3/ul Absolute Eos (auto) (0-0.6) 10^3/ul Absolute Basos (auto) (0-0.2) 10^3/ul Absolute Nucleated RBC 10^3/ul Nucleated RBC % INR (Anticoag Therapy) 1.08 (0.89-1.11) Sodium (133-145) mmol/L Potassium (3.5-5.0) mmol/L Chloride (101-111) mmol/L Carbon Dioxide (22-32) mmol/L Anion Gap (2-11) mmol/L BUN (6-24) mg/dL Creatinine (0.67-1.17) mg/dL Est GFR ( Amer) (>60) Est GFR (Non-Af Amer) (>60) BUN/Creatinine Ratio (8-20) Glucose (70-100) mg/dL Lactic Acid (0.5-2.0) mmol/L Calcium (8.6-10.3) mg/dL Total Bilirubin (0.2-1.0) mg/dL AST (13-39) U/L ALT (7-52) U/L Alkaline Phosphatase (34-104) U/L Troponin I (<0.04) ng/mL B-Natriuretic Peptide 944 H ( - 100) pg/mL Total Protein (6.4-8.9) g/dL Albumin (3.2-5.2) g/dL Globulin (2-4) g/dL Albumin/Globulin Ratio (1-3) TSH (0.34-5.60) mcIU/mL Microbiology and Other Data: Microbiology 11/14/16 14:25 Urine Culture - Final Urine No Growth (<1,000 CFU/mL) 11/14/16 14:20 Nasal Screen MRSA (PCR)([facility]ON) - Final Nasal Mrsa Negative 11/14/16 14:20 Influenza Types A,B Antigen (ELDON) - Final Nasopharyngeal Specimen received for Influenza A/B Molecular testing Assess/Plan/Problems-Billing Assessment: 86yo M recent dx IDL s/p steroids p/w increasing SOB found with PEs and suspected PNA with hospital stay complicated by epistaxis - Patient Problems (1) Acute and chronic respiratory failure with hypoxia Code(s): J96.21 - ACUTE AND CHRONIC RESPIRATORY FAILURE WITH HYPOXIA Comment: In the setting of PNA, interstitial lung disease, and new PEs Dyspnea unlikely to significantly improve Patient electing to sign on with hospice. Start prn morphine and lorazepam to assist with symptom managment. (2) Interstitial lung disease Current Visit: Yes Code(s): J84.9 - INTERSTITIAL PULMONARY DISEASE, UNSPECIFIED Comment: With chronic respiratory failure Patient previously on 4Lnc at home (3) Pulmonary embolism Code(s): I26.99 - OTHER PULMONARY EMBOLISM WITHOUT ACUTE COR PULMONALE Comment : New PE seen on CTA this admission Continue Xarelto 15 mg BID x 21 days then start 20 mg daily. (4) Pneumonia Code(s): J18.9 - PNEUMONIA, UNSPECIFIED ORGANISM Comment: Concern for bilateral infiltrates seen on CTA Continue levofloxacin Persistent leukocytosis, though suspect that steroid therapy is contributing Plan for home with hospice, will complete abx therapy and steroid taper (5) Epistaxis Code(s): R04.0 - EPISTAXIS Comment: Likely secondary to chronic O2 use and recent initiation of anticoagulation ( Xarelto) Appreciate ENT consult - saw patient on 11/16, right bleeding artery cauterized If recurrent bleed - soak gauze in Afrin, pack nose, apply pressure, and leave in place until ENT can reevaluate (6) DVT prophylaxis Comment: Ishmael (7) DNR (do not resuscitate) Comment: MOLST completed on 11/18/16 Patient is DNR/DNI Plan for home with hospice sign on Status and Disposition: Inpatient admission. SW/CM following to facilitate dc to home with hospice. [facility] contacted to see about expedition of medications.
[2016-11-18] MEDS: LORazepam TAB(*) 1 MG PO PRN (20:09)
[2016-11-18] MEDS: Morphine ORAL CONCENTRATE* 5 MG/0.25 ML ORAL.SYRIN SL PRN ×2 (20:09→22:04)
[2016-11-19] MEDS: Pantoprazole IV* 40 MG IV SCH ×2 (01:11→14:28)
[2016-11-19] MEDS: Temazepam CAP* 15 MG PO PRN (01:11)
[2016-11-19] MEDS: LORazepam TAB(*) 1 MG PO PRN (01:11)
--- NOTE | 2016-11-19 04:49 | CONS ---
CC: Andrei Mistry MD; Mark Young MD * PALLIATIVE CARE CONSULTATION: DATE OF CONSULT: 11/17/16 PRIMARY CARE PHYSICIAN: Andrei Mistry MD REFERRING PHYSICIAN: Mark Young MD HOSPITAL COURSE: This is an 86-year-old male with a past medical history of COPD, and pulmonary fibrosis on 4 L oxygen continuously at home, who presented to the emergency room on the , admitted into the intensive care unit with respiratory distress. The patient was initially started on broad-spectrum antibiotics, steroids, Lasix and admitted to the ICU on noninvasive ventilation. There was concern about intubation, however, he was not intubated and was requesting a trial intubation at that time. The patient was then had a CTA on admission for concern of underlying pulmonary disease and was noted to have pulmonary emboli in 2 right basilar segmental arteries; chronic interstitial lung disease and pulmonary hypertension; small bilateral ground glass infiltrates possibly representing atelectasis, less likely pneumonia; severe compression fracture of T6 vertebral body, demonstrating progression from a prior study. The patient was transferred out to the floor and still was having a lot of issues with dyspnea and has not really tried to get out of bed and when he has got up to use the commode, he had significant difficulty with dyspnea. The patient does live at home with his and they discussed over the past month, he has declined with his condition and he was now using a walker as mostly getting short of breath walking from his recliner to his bed, which is less than 5 feet. He has had an 11-pound weight loss over the past 6 months. He states, he feels more fatigued than short of breath mostly, but when exerting himself it does take him a while to catch his breath and to be more comfortable. I spoke to the family at length regarding his MOLST form at that time, he did not wanted to further discuss to changing his trial intubation on his MOLST form. I did discuss with the family that he is eligible for hospice with his endstage lung disease with pulmonary fibrosis and that he is eligible for hospice services at the time. The family was very supportive, but the patient was not yet ready to make a decision. At the bedside were the patient's , 2 step-daughters and his biological daughter. Otherwise, the patient denying any pain at this time and remaining review of systems is negative. PAST MEDICAL HISTORY: 1. COPD, interstitial fibrosis, on home oxygen 4 L. 2. Hypertension. 3. GERD. 4. Depression. 5. Chronic pain. 6. Osteoarthritis. INPATIENT MEDICATIONS: 1. Albuterol q. 2 hours as needed. 2. Ipratropium q. 4 hours as needed. 3. Lorazepam 1 mg every 4 hours as needed. 4. Levofloxacin 500 mg every 24 hours. 5. Morphine sublingual q. 2 hours as needed. 6. Oxymetazoline 2 sprays both nares. 7. Pantoprazole 40 mg IV q. 12. 8. Rivaroxaban 50 mg p.o. b.i.d. 9. Surgical lubricant topical t.i.d. 10. Temazepam 50 mg at bedtime. 11. Prednisone 40 mg p.o. daily. ALLERGIES: HYDROCHLOROTHIAZIDE and PENICILLIN. FAMILY HISTORY: CVA in his mother in her 80s. SOCIAL HISTORY: As mentioned, the patient lives at home with his , Nichole. His primary healthcare proxy is his , Nichole and daughter, Klaus. He has 3 children and 3 step-children. He is a former smoker, he used to smoke cigars daily. 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 PEEWEE palacios is a DNR with a trial intubation at this time. REVIEW OF SYSTEMS: A 14-point review of systems is as mentioned in the HPI. PHYSICAL EXAMINATION: Vital Signs: Temp 96, pulse rate 77, respiratory rate 20 , oxygen saturation 98% on 6 L, blood pressure 112/67. General: A frail elderly male in no acute distress with several family members at the bedside. Pupils are equal, reactive, anicteric. Head is normocephalic. Oropharynx: Mucous membranes moist. Neck: Supple. No lymphadenopathy. Cardiac: Normal sinus rhythm with soft systolic murmur heard throughout. Respiratory: Rhonchorous breath sounds bilaterally with no increased work of breathing, and prolonged expiratory phase. Abdomen: Soft, nontender, nondistended. Extremities: Trace pretibial edema. Neurologic: Alert and oriented x3. No focal neurologic deficits. ASSESSMENT: This is an 86-year-old male with a past medical history of chronic obstructive pulmonary disease, and pulmonary fibrosis on 4 L of oxygen continuous at home, who presented to the emergency room with worsening shortness of breath and respiratory failure, who has not had any significant clinical improvement during his hospital course here. I spoke based on his principal diagnosis of pulmonary fibrosis and chronic obstructive pulmonary disease, he is eligible for hospice with a secondary diagnosis of bilateral pulmonary emboli. I discussed the benefits of having additional resources with hospice at home to allow for symptom management and to not have to worry about going back and forth to his primary care doctor and to the hospital repeatedly and to maintain his symptoms at home. The family seemed interested in hospice, however, the patient was not ready to make a decision. I told him, we would follow up our social media developer to follow up in the hospital to see if once the family discussed it at length more if they had come with a decision. The alternative was to have physical therapy and to see if he would be eligible for rehab. My concern is that this would not be beneficial for him, would not improve his pulmonary status and I worry that it would cause more symptoms of trying to participate and more discomfort than be of any benefit to him. I thank you for this consultation. I will follow along with you. TIME SPENT: Greater than 90 minutes spent doing the consultation, more than half the time spent in direct patient contact. [id number]/[facility] #: [id number] YOLANDA
--- NOTE | 2016-11-19 08:06 | PN ---
Subjective Date of Service: 11/19/16 Interval History: Patient seen and examined at bedside. He is drowsy, having taken sleeping pill last evening. No complaints or acute concerns. Family at bedside. Family is hopeful to take him home today, even though hospice sign on won't occur until Tuesday. Family and myself are trying to reach [facility] to see if medications for home can be expedited. Family History: Unchanged from Admission Social History: Unchanged from Admission Past Medical History: Unchanged from Admission Objective Active Medications: Albuterol (Ventolin 2.5 Mg/3 Ml Neb.Becky*) 2.5 mg INH Q2H PRN PRN Reason: RESPIRATORY DISTRESS Ipratropium [place] (Atrovent 0.5 Mg Neb.Becky*) 0.5 mg INH Q4H PRN PRN Reason: SOB/WHEEZING Levofloxacin (Levaquin Tab*) 500 mg PO Q24H [place]A Lorazepam (Ativan Tab(*)) 1 mg PO Q4H PRN PRN Reason: ANXIETY Last Admin: 11/19/16 01:11 Dose: 1 mg Methylprednisolone Sodium Succinate (Solu-Medrol 125mg *) 60 mg IV ONCE ONE Stop: 11/19/16 09:01 Morphine Sulfate (Morphine Inj (Syringe)*) 2 mg IV ONCE PRN PRN Reason: RESPIRATORY DISTRESS Last Admin: 11/14/16 16:05 Dose: 2 mg Morphine Sulfate (Morphine Oral Concentrate*) 5 mg SL Q2H PRN PRN Reason: PAIN Last Admin: 11/18/16 22:04 Dose: 5 mg Multi-Ingredient Gel (Surgilube*) 1 applic TOPICAL TID [facility] Last Admin: 11/18/16 20:10 Dose: 1 applic Oxymetazoline HCl (Afrin 0.05% Nasal [place]*) 3 spray BOTH NARES BID [facility] Last Admin: 11/18/16 20:10 Dose: 1 nasal.spr Pantoprazole Sodium (Protonix Iv*) 40 mg IV Q12H [facility] Last Admin: 11/19/16 01:11 Dose: 40 mg Prednisone (Deltasone Tab*) 40 mg PO DAILY [facility] Rivaroxaban (Xarelto(*)) 15 mg PO BID [facility] Last Admin: 11/18/16 20:09 Dose: 15 mg Temazepam (Restoril Cap*) 15 mg PO BEDTIME PRN PRN Reason: INSOMNIA Last Admin: 11/19/16 01:11 Dose: 15 mg Vital Signs 11/18/16 11/18/16 11/18/16 08:59 12:02 15:23 Temperature 97.3 F 96.0 F Pulse Rate 85 71 77 Respiratory 18 26 28 Rate Blood Pressure 116/62 112/67 (mmHg) O2 Sat by Pulse 92 95 98 Oximetry 11/18/16 11/18/16 11/18/16 20:00 20:09 22:04 Temperature Pulse Rate Respiratory 28 22 38 Rate Blood Pressure (mmHg) O2 Sat by Pulse Oximetry 11/18/16 11/19/16 11/19/16 22:09 00:00 00:04 Temperature 97.4 F Pulse Rate 73 Respiratory 30 16 20 Rate Blood Pressure 100/58 (mmHg) O2 Sat by Pulse 95 Oximetry 11/19/16 11/19/16 11/19/16 01:11 03:11 07:46 Temperature Pulse Rate Respiratory 20 20 20 Rate Blood Pressure (mmHg) O2 Sat by Pulse 90 Oximetry Oxygen Devices in Use Now: Simple Face Mask - 5L Appearance: Elderly male, lying in bed, NAD Respiratory: Symmetrical Chest Expansion and Respiratory Effort, - - diffuse rales Cardiovascular: NL Sounds; No Murmurs; No JVD, RRR Extremities: No Edema Neurological: - - drowsy, is able to make needs known, oriented to self, place Lines/Tubes/Other Access: Clean, Dry and Intact Peripheral IV Result Diagrams: 11/18/16 04:21 11/18/16 04:21 Additional Lab and Data: Lab Results 11/14/16 11/14/16 11/14/16 Range/Units 11:32 11:32 11:32 WBC 24.0 H (3.5-10.8) 10^3/ul RBC 5.42 H (4.0-5.4) 10^6/ul Hgb 15.9 (14.0-18.0) g/dl Hct 48 (42-52) % MCV 88 (80-94) fL MCH 29 (27-31) pg MCHC 33 (31-36) g/dl RDW 14 (10.5-15) % Plt Count 303 (150-450) 10^3/ul MPV 8 (7.4-10.4) um3 Neut % (Auto) 79.0 (38-83) % Lymph % (Auto) 11.4 L (25-47) % [place] % (Auto) 4.7 (1-9) % Eos % (Auto) 4.2 (0-6) % Baso % (Auto) 0.7 (0-2) % Absolute Neuts (auto) 19.0 H (1.5-7.7) 10^3/ul Absolute Lymphs (auto) 2.7 (1.0-4.8) 10^3/ul Absolute Monos (auto) 1.1 H (0-0.8) 10^3/ul Absolute Eos (auto) 1.0 H (0-0.6) 10^3/ul Absolute Basos (auto) 0.2 (0-0.2) 10^3/ul Absolute Nucleated RBC 0.01 10^3/ul Nucleated RBC % 0 INR (Anticoag Therapy) (0.89-1.11) Sodium 131 L (133-145) mmol/L Potassium 3.7 (3.5-5.0) mmol/L Chloride 98 L (101-111) mmol/L Carbon Dioxide 27 (22-32) mmol/L Anion Gap 6 (2-11) mmol/L BUN 28 H (6-24) mg/dL Creatinine 0.81 (0.67-1.17) mg/dL Est GFR ( Amer) 116.2 (>60) Est GFR (Non-Af Amer) 90.4 (>60) BUN/Creatinine Ratio 34.6 H (8-20) Glucose 155 H (70-100) mg/dL Lactic Acid 1.8 (0.5-2.0) mmol/L Calcium 9.1 (8.6-10.3) mg/dL Total Bilirubin 0.80 (0.2-1.0) mg/dL AST 35 (13-39) U/L ALT 28 (7-52) U/L Alkaline Phosphatase 81 (34-104) U/L Troponin I 0.46 H* (<0.04) ng/mL B-Natriuretic Peptide ( - 100) pg/mL Total Protein 6.8 (6.4-8.9) g/dL Albumin 3.7 (3.2-5.2) g/dL Globulin 3.1 (2-4) g/dL Albumin/Globulin Ratio 1.2 (1-3) TSH 3.77 (0.34-5.60) mcIU/mL 11/14/16 11/14/16 Range/Units 11:32 11:32 WBC (3.5-10.8) 10^3/ul RBC (4.0-5.4) 10^6/ul Hgb (14.0-18.0) g/dl Hct (42-52) % MCV (80-94) fL MCH (27-31) pg MCHC (31-36) g/dl RDW (10.5-15) % Plt Count (150-450) 10^3/ul MPV (7.4-10.4) um3 Neut % (Auto) (38-83) % Lymph % (Auto) (25-47) % [place] % (Auto) (1-9) % Eos % (Auto) (0-6) % Baso % (Auto) (0-2) % Absolute Neuts (auto) (1.5-7.7) 10^3/ul Absolute Lymphs (auto) (1.0-4.8) 10^3/ul Absolute Monos (auto) (0-0.8) 10^3/ul Absolute Eos (auto) (0-0.6) 10^3/ul Absolute Basos (auto) (0-0.2) 10^3/ul Absolute Nucleated RBC 10^3/ul Nucleated RBC % INR (Anticoag Therapy) 1.08 (0.89-1.11) Sodium (133-145) mmol/L Potassium (3.5-5.0) mmol/L Chloride (101-111) mmol/L Carbon Dioxide (22-32) mmol/L Anion Gap (2-11) mmol/L BUN (6-24) mg/dL Creatinine (0.67-1.17) mg/dL Est GFR ( Amer) (>60) Est GFR (Non-Af Amer) (>60) BUN/Creatinine Ratio (8-20) Glucose (70-100) mg/dL Lactic Acid (0.5-2.0) mmol/L Calcium (8.6-10.3) mg/dL Total Bilirubin (0.2-1.0) mg/dL AST (13-39) U/L ALT (7-52) U/L Alkaline Phosphatase (34-104) U/L Troponin I (<0.04) ng/mL B-Natriuretic Peptide 944 H ( - 100) pg/mL Total Protein (6.4-8.9) g/dL Albumin (3.2-5.2) g/dL Globulin (2-4) g/dL Albumin/Globulin Ratio (1-3) TSH (0.34-5.60) mcIU/mL Microbiology and Other Data: Microbiology 11/14/16 14:25 Urine Culture - Final Urine No Growth (<1,000 CFU/mL) 11/14/16 14:20 Nasal Screen MRSA (PCR)([facility]) - Final Nasal Mrsa Negative 11/14/16 14:20 Influenza Types A,B Antigen (ELDON) - Final Nasopharyngeal Specimen received for Influenza A/B Molecular testing Assess/Plan/Problems-Billing Assessment: 86yo M recent dx IDL s/p steroids p/w increasing SOB found with PEs and suspected PNA with hospital stay complicated by epistaxis - Patient Problems (1) Acute and chronic respiratory failure with hypoxia Code(s): J96.21 - ACUTE AND CHRONIC RESPIRATORY FAILURE WITH HYPOXIA Comment: In the setting of PNA, interstitial lung disease, and new PEs Dyspnea unlikely to significantly improve Patient electing to sign on with hospice. Continue prn morphine and lorazepam to assist with symptom managment. (2) Interstitial lung disease Current Visit: Yes Code(s): J84.9 - INTERSTITIAL PULMONARY DISEASE, UNSPECIFIED Comment: With chronic respiratory failure Patient previously on 4Lnc at home (3) Pulmonary embolism Code(s): I26.99 - OTHER PULMONARY EMBOLISM WITHOUT ACUTE COR PULMONALE Comment : New PE seen on CTA this admission Continue Xarelto 15 mg BID x 21 days then start 20 mg daily. (4) Pneumonia Code(s): J18.9 - PNEUMONIA, UNSPECIFIED ORGANISM Comment: Concern for bilateral infiltrates seen on CTA Continue levofloxacin Persistent leukocytosis, though suspect that steroid therapy is contributing Plan for home with hospice, will complete abx therapy and steroid taper (5) Epistaxis Code(s): R04.0 - EPISTAXIS Comment: Likely secondary to chronic O2 use and recent initiation of anticoagulation ( Xarelto) Appreciate ENT consult - saw patient on 11/16, right bleeding artery cauterized If recurrent bleed - soak gauze in Afrin, pack nose, apply pressure, and leave in place until ENT can reevaluate (6) DVT prophylaxis Comment: Ishmael (7) DNR (do not resuscitate) Comment: MOLST completed on 11/18/16 Patient is DNR/DNI Plan for home with hospice sign on Status and Disposition: Inpatient admission. Potential dc to home today, pending availability of medications and home equipment.
[2016-11-19 08:18] VITALS: BP 134/64
[2016-11-19] MEDS: Rivaroxaban TAB(*) 15 MG PO SCH (08:44)
[2016-11-19] MEDS: Surgical Lubricant STERILE* 120 GM TOP.GEL TOPICAL SCH ×2 (08:48→14:34)
[2016-11-19] MEDS: Oxymetazoline 0.05% NASAL SPR* 15 ML BTL BOTH NARES SCH (08:48)
[2016-11-19] MEDS ORDERED: methylPREDNISolone 125 MG* 2 ML VIAL IV ONE (09:00)
[2016-11-19] MEDS ORDERED: Levofloxacin TAB* 500 MG PO SCH (12:00)
[2016-11-20] MEDS ORDERED: predniSONE TAB* 20 MG PO SCH (09:00)
--- NOTE | 2016-11-20 17:57 | DS ---
CC: Dr. Mistry; [facility]* MEDICINE DISCHARGE SUMMARY: DATE OF ADMISSION: 11/14/16 DATE OF DISCHARGE: 11/19/16 PRIMARY CARE PROVIDERS: Krystal Brizuela [facility] and Andrei Mistry MD. PROVIDER: Jessica Dial NP. ATTENDING PHYSICIAN: Danielle Velázquez MD* (dictated by Jessica Dial NP). CONSULTING PHYSICIANS: Dr. Marilee Patrick, Palliative Care; Dr. Camilo Lucia, ENT; Dr. Abraham Menjivar, brand attendant. HOSPITAL COURSE OF STAY: Mr. Cervantes is an 86-year-old male with a past medical history significant for COPD and pulmonary fibrosis, who was chronically on O2 at 4 L at home and presented to the emergency room on 11/14/16 with concern for respiratory distress. He was admitted to the ICU and was started on broad- spectrum antibiotics, steroids, Lasix, and non-invasive ventilation. The patient was not intubated but did have a CTA on admission with concern for pulmonary emboli in the two right basilar segmental arteries as well as chronic interstitial lung disease and pulmonary hypertension, as well as a concern for pneumonia. The patient had persistent difficulty with dyspnea and was unable to get out of bed without significant distress. In discussion with the patient and his family, it has been disclosed that the patient has had a significant decline in his condition at home; the patient now uses a walker and often gets very dyspneic with his ADLs. He has been treated here in the hospital with antibiotics and steroids for suspected pneumonia and started on Xarelto for his PE. He did meet with Dr. Patrick, Palliative Care, and after discussion the family has opted to pursue hospice. A new MOLST was completed here in the hospital and arrangements have been made for the patient to sign on with hospice at home on 11/22/16. The patient and family were given the option of staying here in the hospital until hospice was available to sign in on Tuesday; however, they feel as they may be able to manage him at home with additional family help and home equipment including a hospital bed. These things have been arranged. We were able to dispense the patient's medications including p.r.n. morphine and lorazepam for home use as the patient does still get very dyspneic. We have also arranged for a home nebulizer to be delivered to the house with p.r.n. albuterol. Family is prepared to take the patient home and continue with treatment and comfort care measures at home, and will sign on with hospice on Tuesday. They have been taught on how to use the medications appropriately and when to use the nebulizer machine and treatments. In regards to the patient's PE, pneumonia, and interstitial lung disease, the patient will be continued on his prednisone and taper it. He will receive the last few days of Levaquin and we are currently continuing him on Xarelto until this is addressed by Hospice and/or his PCP in the future. CONCERNS AT DISCHARGE: Mr. Cervantes will be discharged to home on 11/19/16, with a plan for Hospice sign on on 11/22/16. OUTPATIENT FOLLOWUP NEEDS: Sign on with Hospice. The patient's medications have been adjusted. He is currently continuing on Levaquin and prednisone for a few more days, and then these will be discontinued. He will stay on Xarelto at this time, but this will be adjusted in the future with Hospice and his PCP. DIET: May resume previous diet. ACTIVITY: As tolerated. CONDITION: Guarded. DISPOSITION: To home with Hospice sign-on. TIME SPENT: Time spent on this discharge was approximately 60 minutes. Again, this is only a brief summary of the patient's hospital course of stay. For full details, please refer to the full medical record. If you have any further questions or need further assistance, please feel free to contact me at . JESSICA DIAL NP [id number]/[facility] #: [id number] YOLANDA
== END 2016-11-19 16:30 | disposition home health service (06) | DRG 163 ==
LOC: ED 11:12 → ICU 13:22 → MEDTELE 11-15 15:39
PROVIDERS: ADMIT Internal Medicine Critical Care Medicine; ATTEND Hospitalist
PROC: 5A09357 Assistance with Respiratory Ventilation, Less than 24 Consecutive Hours, Continuous Positive Airway Pressure (ICD-10-PCS; principal; 2016-11-14)
PROC: 0W3Q7ZZ Control Bleeding in Respiratory Tract, Via Natural or Artificial Opening (ICD-10-PCS; 2016-11-16)
DX: J44.0 Chronic obstructive pulmonary disease with (acute) lower respiratory infection (principal); J96.21 Acute and chronic respiratory failure with hypoxia; I26.99 Other pulmonary embolism without acute cor pulmonale; J84.9 Interstitial pulmonary disease, unspecified; J18.9 Pneumonia, unspecified organism; J84.10 Pulmonary fibrosis, unspecified; Z99.81 Dependence on supplemental oxygen; I27.2 Other secondary pulmonary hypertension; Z66 Do not resuscitate; Z88.5 Allergy status to narcotic agent; Z88.0 Allergy status to penicillin; E78.00 Pure hypercholesterolemia, unspecified; I10 Essential (primary) hypertension; K21.9 Gastro-esophageal reflux disease without esophagitis; M19.90 Unspecified osteoarthritis, unspecified site; Z98.42 Cataract extraction status, left eye; Z98.41 Cataract extraction status, right eye; F17.290 Nicotine dependence, other tobacco product, uncomplicated; Z82.3 Family history of stroke; R04.0 Epistaxis; Z51.5 Encounter for palliative care; F32.9 Major depressive disorder, single episode, unspecified; G89.29 Other chronic pain
CPT/HCPCS: 36415; 36600; 71010; 71275; 80053; 81003; 82803; 83605; 83880; 84145; 84443; 84484; 84520; 85025; 85610; 85730; 86140; 87040; 87086; 87502; 87641; 93005; 93306; 93970; 94660; 94760; 96374; 99284; A9270-GY; J1644; J1940; J1956; J2270; J2930; Q9967